=== PATIENT | female | born 1940 | race Caucasian/White ===

== ENCOUNTER → 2019-10-19 13:06 | Outpatient (BNVA) | payer MEDICARE, OTHER, SELFPAY | PROVIDERS: Family Provider Nurse Practitioner Family; PCP Nurse Practitioner Family; Visit Provider Nurse Practitioner Family | DX: R19.7 Diarrhea, unspecified (principal) | CPT/HCPCS: 80053; 85025 ==

== ENCOUNTER → 2019-10-20 13:05 | Outpatient (BNVA) | payer MEDICARE, OTHER, SELFPAY | PROVIDERS: Family Provider Nurse Practitioner Family; PCP Nurse Practitioner Family; Visit Provider Nurse Practitioner Family | DX: R19.7 Diarrhea, unspecified (principal) | CPT/HCPCS: 87493; 87505 ==

== ENCOUNTER → 2019-11-11 13:22 | Outpatient (BNVA) | payer MEDICARE, OTHER, SELFPAY | PROVIDERS: Visit Provider Nurse Practitioner Family | DX: R60.0 Localized edema (principal); I10 Essential (primary) hypertension; K29.80 Duodenitis without bleeding | CPT/HCPCS: 80048; 85025 ==

== ENCOUNTER → 2019-12-08 10:12 | Outpatient (BNVA) | payer MEDICARE, OTHER, SELFPAY | PROVIDERS: Visit Provider Family Medicine | DX: D64.9 Anemia, unspecified (principal) | CPT/HCPCS: 80053; 85025 ==

== ENCOUNTER → 2020-05-25 08:42 | Outpatient (BNVA) | payer MEDICARE, OTHER, SELFPAY | PROVIDERS: Visit Provider Internal Medicine | DX: Z11.59 Encounter for screening for other viral diseases (principal) | CPT/HCPCS: 87635 ==

== ENCOUNTER 2020-05-30 20:25 | Observation (INO) | payer MEDICARE, OTHER, SELFPAY ==
--- NOTE | 2020-05-29 13:04 | P.ANESASSM_ITS ---
Pre-Anesthetic Assessment Pre-Anesthetic Assessment: Height/Weight: Height 1.65 m Weight 72.575 kg Preop Diagnosis: uterine prolapse Proposed Procedure: Operation Date: 05/30/20 10:10 Proposed Procedures p Anterior Repair(Not Applicable) - Presley Medina MD s Posterior Repair(Not Applicable) - Presley Medina MD s Midurethral single incision sling(Not Applicable) - Presley Medina MD s Sacrospinal Ligament Suspension(Not Applicable) - Presley Medina MD Familial anesthetic complications: None Was Beta Yo taken within 24 hours: N/A Social: Social History: No alcohol and No tobacco Exam: Pre-Anes Outpt Exam: alert, oriented x 3, clear to auscultation bilaterally and regular rate & rhythm Airway: Cervical ROM: WNL MP: 3 Dentition: False CV/HEM: CV/HEM: HTN Anesthetic Plan: ASA status: 2 Anesthesia: General Risk of > 500 ml blood loss (7ml/kg in children): No PFSH Anesthesia PFSH: Medical History CKD (chronic kidney disease), stage III Hypertension Diagnosed in her 60s and is controlled with medication managed by her primary care doctor Dr. Mcleod. Mixed hyperlipidemia Currently on medication managed by her primary care provider No pertinent past medical history Denies: diabetes, asthma, hypertension, seizures, DVT/PE PCP: Dr. Mcleod Osteoporosis On Prolia managed by Dr. Mcleod since 2018 Surgical History History of back surgery x 2 for bulging disc 1994-Performed in [facility] 10/2015- Performed in [facility] laparoscopic cholecystectomy [id number]: Laparoscopic procedure, Performed in [place], [place] Hx of bilateral cataract extraction Performed in [place] Hx of hysterectomy 03/19/16- total abdominal hysterectomy, bilateral salpingo-oophorectomy, lysis of adhesions-Performed in [facility] by Dr. Xavier Bartlett. -----Operative reports requested and received (scanned) ---> Intraoperatively a 10 cm mass was noted which appeared to be originating from the left ovary and appeared to be benign. Frozen section was done which confirmed that this was benign. Bilateral ovaries, pelvic mass originating from the left ovary and uterus were removed without difficulty after lysis of adhesions. Vaginal cuff was closed. -Left tube and ovary with pelvic mass pathology showed serous cyst adenofibroma with normal fallopian tube. Right ovary should adenofibroma with focal features of serous cystoadenofibroma. Uterus showed fibroids with focally disordered proliferative endometrium and chronic cervicitis. 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 Mother Diabetes Stroke Heart disease Thyroid condition Sister Hyperlipidemia x 3 Hypertension Father CHF (congestive heart failure) Heart disease Other COPD (chronic obstructive pulmonary disease) Vaginal prolapse Denies family history of Colon cancer Ovarian cancer Breast cancer Uterine cancer Social History (Updated 05/29/20 @ 10:15 by Jesenia Penn RN) Smoking and tobacco status: former smoker Quit status (tobacco): has quit using tobacco Former quit date comment: quit age 45; smoked PPD x 20 yrs Second hand smoke exposure: No Alcohol intake: never Caregiver/support person: Yes Lives independently: Yes Housing: House Marital status: History of recent travel: No Additional social history: Tobacco use: Former smoker-started smoking in her 20s and smoked about 1 pack of cigarettes a day and stopped at the age of 45- denies tobacco product use since then Alcohol use: Denies Drug use: Denies 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 Data Anesthesia Cardiac Studies: No Data to Display
[2020-05-30] VITALS (13 sets, daily range): BP systolic 99–145; BP diastolic 49–80; PULSE 73–106; RESP 14–25; TEMP 36.5–36.8; O2SAT 94–100; BMI 26.6
--- NOTE | 2020-05-30 08:53 | W.PM.OPSUD ---
Surgery/Procedure H&P Update DATE OF PROCEDURE: May 30, 2020 DATE H&P PERFORMED: 05/29/20 H&P UPDATE INFORMATION: I have reviewed H&P completed within last 30 days, I have examined patient prior to procedure and No changes to prior documentation PREOP DIAGNOSIS: Vaginal prolapse PLANNED PROCEDURE: Operation Date: 05/30/20 10:10 Proposed Procedures p Anterior Repair(Not Applicable) - Presley Medina MD s Posterior Repair(Not Applicable) - Presley Medina MD s Midurethral single incision sling(Not Applicable) - Presley Medina MD s Sacrospinal Ligament Suspension(Not Applicable) - Presley Medina MD
[2020-05-30] MEDS: sodium chloride 0.9% 1,000 ML 30 ML IV (09:18)
[2020-05-30] MEDS: vancomycin 1,000 MG in sodium chloride 0.9% 250 ML 250 MG IV (09:26)
[2020-05-30 10:10] LABS: Basophils # 0.1 10^3/uL (0.0-0.1); Basophils % 0.5 %; Eosinophils # 0.3 10^3/uL (0.0-0.8); Hematocrit 38.1 % (37.0-47.0); Hemoglobin 11.4 g/dL (11.5-15.3); Lymphocytes # 1.3 10^3/uL (0.8-4.8); Lymphocytes % 13.9 %; Mean Corpuscular HGB Conc 29.9 g/dL (30.0-36.0); Mean Corpuscular Volume 90.3 fL (81-99); Mean Platelet Volume 10.7 fL (7.4-10.4); Monocytes # 0.7 10^3/uL (0.2-0.9); Monocytes % 7.8 %; Neutrophils # 6.78 10^3/uL (1.8-7.7); Neutrophils % 74.5 %; Nucleated Red Blood Cells % 0 %; Platelet Count 347 10^3/cmm (130-400); Red Blood Count 4.22 10^6/uL (4.1-5.3); Red Cell Distribution Width 15.4 % (12.1-15.1); White Blood Count 9.1 10^3/uL (4.0-10.0)
--- NOTE | 2020-05-30 10:23 | P.ANESUD_ITS ---
Pre-Anesthetic Update Pre-Anesthetic Assessment: Date of Surgery/Procedure: 05/30/20 Preop Marleen gnosis: Vaginal prolapse Proposed Procedure: Operation Date: 05/30/20 10:10 Proposed Procedures p Anterior Repair(Not Applicable) - Presley Medina MD s Posterior Repair(Not Applicable) - Presley Medina MD s Midurethral single incision sling(Not Applicable) - Presley Medina MD s Sacrospinal Ligament Suspension(Not Applicable) - Presley Medina MD Any changes to Pre-Anesthetic Assessment?: No Last Intake: Intake Last Liquid Date 05/29/20 Last Liquid Time 22:00 Last Solid Date 05/29/20 Last Solid Time 15:30 Labs Last 48hrs: Laboratory Results - last 48 hr 05/30/20 09:15 WBC 9.1 RBC 4.22 Hgb 11.4 L Hct 38.1 MCV 90.3 MCH 27.0 L MCHC 29.9 L RDW 15.4 H Plt Count 347 MPV 10.7 H Neut % (Auto) 74.5 Lymph % (Auto) 13.9 Lipscomb % (Auto) 7.8 Eos % (Auto) 3.0 Baso % (Auto) 0.5 Neut # (Auto) 6.78 Lymph # (Auto) 1.3 Lipscomb # (Auto) 0.7 Eos # (Auto) 0.3 Baso # (Auto) 0.1 Nucleated RBC % (a uto) 0 Nucleated RBCs # 0.0 Vitals: Temperature 97.7 F 05/30/20 08:50 Temperature Source Temporal Artery S can 05/30/20 08:50 Pulse Rate 77 05/30/20 08:50 Pulse Rhythm 05/30/20 08:50 Respiratory Rate 18 05/30/20 08:50 Blood Pressure 136/56 05/30/20 08:50 Blood Pressure Kim n 82 05/30/20 08:50 Pulse Oximetry 97 05/30/20 08:50 Oxygen Delivery Me thod 05/30/20 08:50 Exam: Pre-Anes Outpt Exam: alert, oriented x 3, clear to auscultation bilaterally and regular rate & rhythm Other Pertinent Information: Other Pertinent Information: HTN, CKD III Cardiac Studies: No Data to Display
[2020-05-30 10:26] LABS: Alanine Aminotransferase 45 U/L (0-33); Albumin Level 3.7 g/dL (3.5-5.2); Alkaline Phosphatase 554 IU/L (35-105); Anion Gap 17.6 (5-19); Aspartate Amino Transferase 32 U/L (0-32); Blood Urea Nitrogen 19 mg/dL (8-23); Calcium 8.3 mg/dL (8.5-10.5); Carbon Dioxide 14 mmol/L (22-29); Chloride 110 mmol/L (98-107); Creatinine Clr Calc Pharmacy 32.5246; Globulin 2.7 g/dL (1.3-4.6); Glucose 96 mg/dL (65-115); Osmolality Calculated 282 mOsm/kg (285-295); Potassium 3.6 mmol/L (3.5-5.1); Sodium 138 mmol/L (136-145); Total Bilirubin 0.3 mg/dL (0.15-1.2); Total Protein 6.4 g/dL (6.6-8.7)
[2020-05-30 10:54] LABS: Add Urine Microscopic? YES; Bilirubin Urine Neg (NEGATIVE); Blood Urine 2+ (Negative); Glucose Urine UA Norm (Normal); Ketones Urine 1+ (Negative); Leukocyte Esterase Urine 1+ (Negative); Nitrate Urine Negative (Negative); Protein Urine Neg (Negative); Urine Appearance Clear (CLEAR); Urine Color Yellow (Yellow); Urobilinogen Urine Norm (Negative)
[2020-05-30 11:02] LABS: Add Urine Culture? No; Bacteria Urine 1+; Hyaline Casts Urine 0-4; Mucus Urine 1+; Squamous Epithelial Cell Urine 15-25 (0-5); Transitional Epi Cells Urine 0-4 /hpf
--- NOTE | 2020-05-30 20:09 | P.OP_ITS ---
Operative Report Date of procedure: May 30, 2020 Pre-op Diagnosis: Vaginal prolapse Procedure Done: Anterior posterior colporrhaphy with mid urethral sling and sacrospinous ligament fixation. Surgeon: Presley Medina M.D. Anesthesia: General Estimated blood loss (mL): 50 IV fluids (mL): 1,200 Urine output (mL): 100 Condition: stable Disposition: PACU Procedure: After obtaining informed consent, the patient was taken to the operating room and placed in the supine position, given general anesthesia, and prepped and draped in sterile fashion. The abdomen, vulva and vagina were prepped and draped in a sterile manner. A time out procedure was performed. A vertical midline incision was made beneath the midurethra, nearly 1.5 cm length. Careful submucosal dissection was performed bilaterally up to the interior portion of the inferior pubic ramus. The insertion of adductor longus tendon on the patient?s pubic ramus was identified as reference land hortencia. Palpated the notch along the internal edge of ischiopubic ramus where the adductor longus tendon and the inferior pubic ramus meet. The needle of the SIS inserted aiming at the location of this notch. One of the integrated self- fixating tips place onto the needle by sliding it over the end of the needle. The needle/sling assembly was inserted toward the location of identified reference notch making sure that the flat of the handle is perpendicular to the desired path. The needle was tracked along the posterior surface of the ischiopubic ramus until the midline hortencia on the mesh is approximately at the midline position under the urethra. The needle was removed and the same was repeated on the contralateral side until the appropriate sling tension under the urethra was achieved ensuring that the mesh lays flat. The needle was removed and vaginal incision was closed in a running interlocking fashion with 2-0 Vicryl. Then vaginal mucosa was then injected in the midline with normal saline. The vaginal mucosa was scored in the midline with the Bovie approximately 1 cm medial to the urethral meatus to 1 cm distal to the vaginal cuff. This vaginal mucosa was then undermined and then incised in the midline with the Metzenbaum scissors. The lateral aspects of the vaginal mucosa were then grasped with the Allis clamps and the vaginal mucosa was then dissected off the underlying fascia with the Metzenbaum scissors. Again, there was noted to be quite a bit of oozing at the incision, which was controlled with cautery. After adequate dissection was performed, bilaterally. The Coloplast allograft is modified at time of application to fit spacea,3 x 3 cm piece . The allograft was placed in front of cystocele ready to be implanted with the Basement Membrane facing the vagina mucosa. Suture is placed at distal end of graft and placed towards vaginal cuff. Final suture is placed on proximal portion of the graft to complete the placement overlying the bladder. Then Interrupted vertical mattress sutures of 0 Vicryl were used to elevate the cystocele superiorly. The excessive vaginal mucosa was then trimmed with the Metzenbaum scissors and the vaginal mucosa was then reapproximated in the running interlocking fashion with 2-0 Vicryl. The posterior vaginal mucosa is opened in the routine fashion as described previously in Posterior Repair. A finger is inserted through the incision in the posterior vaginal mucosa, dissecting out the rectovaginal space (RVS). The right rectal pillar (RRP) is identified. The rectal pillar can be bluntly perforated either with the finger or with the tip of a long Maral clamp. A malleable retractor is used for exposing the rectovaginal space in order to enter the pararectal space with retraction of the cardinal ligament, vagina, and rectum. Displacing the rectum to the left and the cardinal ligament and ureter anteriorly. A sponge dissector is used to bluntly dissect the sacrospinous ligament removing areolar tissue. The ischial spine was palpated directly, and a area approximately 2 cm medial to the spine was selected for insertion of the Anchorsure transvaginal sacrospinous fixation system. One end of the suture of Anchoresure system inserted through the sacrospinous ligament is placed through the muscular layer of the vagina. In a similar manner, the second suture is placed. The opposite end of the suture in the sacrospinous ligament is left free and held on a small hemostat. Then traction on this suture will draw the vaginal vault directly to the ligament, where a square knot affixes it to the sacrospinous ligament. After the akbar stich is tied the second safety stich is tied. Then the colporrhaphy/vaginal repair is carried out in routine fashion. Then the Gonzalez catheter was removed and cystoscope was inserted. The bladder was filled with sterile water. Complete evaluation of the bladder mucosa was performed noting no lacerations, dimpling, tears, bleeding of the mucosa or muscular layers. Both ureteral orifices were identified. Prompt excretion of urine from both ureteral orifices was noted. Cystoscope was withdrawn. The Gonzalez catheter was replaced. Excellent hemostasis was obtained. A vaginal pack is placed overnight as postoperative support for the vaginal tissues after graft placement and closure of vaginal incisions. Sponge, lap, needle, and instrument counts were correct times three. The patient was taken to the recovery room, awake and in stable condition.
--- NOTE | 2020-05-30 20:28 | ANE.PACU2 ---
Inpatient post-anesthesia follow up: Airway intact: Yes Vital signs: Temperature 97.7 F Pulse Rate 77 Respiratory Rate 18 Blood Pressure 136/56 Pulse Oximetry 97 Oxygen Delivery Me thod Room Air Oxygen Flow Rate Fraction of Inspir ed Oxygen Hydration adequate: Yes Nausea and vomiting: No Mental status: Baseline
--- NOTE | 2020-05-30 23:12 | PC.NURSE ---
2033 Dr Medina gave verbal orders that pt can eat as tolerated, Gonzalez out in AM, PVR less than 150 discontinue Gonzalez, if greater than 150 repeat in 2 hours, if greater than 150 on second trial replace Gonzalez and discharge with Gonzalez. Remove vaginal packing in AM
[2020-05-31] VITALS (9 sets, daily range): BP systolic 92–132; BP diastolic 53–71; PULSE 66–79; RESP 14–17; TEMP 36.4–36.8; O2SAT 93–99
[2020-05-31] MEDS: dextrose 5%-lactated ringers 1,000 ML 125 ML IV (01:32)
[2020-05-31] MEDS: multivitamin therapeutic Tablet 1 TAB PO (06:26)
[2020-05-31] MEDS: FUROsemide 20 mg Tablet PO (06:26)
[2020-05-31 06:28] LABS: Hematocrit 30.3 % (37.0-47.0); Hemoglobin 9.1 g/dL (11.5-15.3); Mean Corpuscular Hemoglobin 27.1 pg (28.0-34.0); Mean Corpuscular Volume 90.2 fL (81-99); Platelet Count 287 10^3/cmm (130-400); Red Blood Count 3.36 10^6/uL (4.1-5.3); Red Cell Distribution Width 15.7 % (12.1-15.1); White Blood Count 9.5 10^3/uL (4.0-10.0)
--- NOTE | 2020-05-31 07:17 | ANE.PACU2 ---
Inpatient post-anesthesia follow up: Airway intact: Yes Vital signs: Temperature 97.7 F Pulse Rate 77 Respiratory Rate 16 Blood Pressure 99/59 Pulse Oximetry 96 Oxygen Delivery Me thod Room Air Oxygen Flow Rate 2 Fraction of Inspir ed Oxygen Hydration adequate: Yes Nausea and vomiting: No Pain level: 1 Mental status: Baseline
[2020-05-31] MEDS: amlodipine 10 mg Tablet PO (09:43)
[2020-05-31] MEDS: losartan 50 mg Tablet PO (09:43)
[2020-05-31] MEDS: cholecalciferol (vitamin D3) 5,000 unit Tablet 5000 UNIT PO (09:44)
[2020-05-31] MEDS: zinc gluconate 50 mg Tablet PO (09:44)
--- NOTE | 2020-05-31 14:34 | PC.NURSE ---
Diarrhea Episode Patient hit emergency lit in bathroom. RNs rushed to patient's room and found her in bathroom and diarrhea found on bed, trail on floor to bathroom, and all over patient. RNs assisted patient in cleaning herself up, changed linens, and had environmental services mop floor and clean bathroom. Patient stated she gets diarrhea when she eats very much. Stated she didn't want to drink water for a little bit, felt her diarrhea was straight water.
--- NOTE | 2020-05-31 17:43 | P.DS_ITS ---
Discharge Providers HYDRAULIC PRESS IN OPERATOR Date of Admission: 05/30/20 20:25 Date of Discharge: 05/31/20 Attending Provider at Admission: Presley Medina MD Attending Provider at Discharge: Presley Medina MD Primary Care Provider: Sharifa Mcleod MD Diagnoses at Discharge Discharge Diagnosis (1) Vaginal prolapse: Status: Acute Problem details: 03/14/2020--grade 3 cystocele, grade 2-3 vault prolapse, grade 1 rectocele. 04/17/2020--failed pessary fitting Reason for Visit Reason for Visit: Cystocele grade 3 Hospital Course Hospital Course: 79-year-old female, With cystocele stage III rectocele stage I Admitted for an anterior posterior colporrhaphy with mid urethral sling, and sacrospinous fixation. An anterior colporrhaphy augmented with allograft, mid- urethral sling And posterior colporrhaphy with sacrospinous fixation performed without complications. Overnight observation uneventful. Patient discharged home with Gonzalez catheter to reassess PVR on Thursday. Physical Exam Narrative: EXAM NARRATIVE: GA: Alert and oriented ?3. HEENT: WNL. Heart: Regular rate and rhythm. Lungs: Clear to auscultation bilaterally. Abdomen: Bowel sounds present, nontender DIVER ASSISTANT:minimal bleeding. Extremities: No edema, no cyanosis, no calves pain. Urinary Catheter Management^: Gonzalez: Cath Placed During This Visit: yes, but has since been removed by the nurse Reason for Continuing Indwelling Catheter: Decision to DC Catheter Urinary Catheter Date of Insertion: 05/31/20 Urinary Catheter Time of Insertion: 15:15 Date Urinary Catheter Removed: 05/31/20 Time Urinary Catheter Discontinued: 06:30 Discharge Data Data Completed and Pending: Labs from last 24 hours 05/31/20 06:15 WBC 9.5 RBC 3.36 L Hgb 9.1 L Hct 30.3 L MCV 90.2 MCH 27.1 L MCHC 30.0 RDW 15.7 H Plt Count 287 MPV 11.0 H Vitals: Last Vital Signs Temp 97.6 F 05/31/20 09:45 Pulse 66 05/31/20 16:19 Resp 17 05/31/20 16:19 BP 132/71 05/31/20 16:19 Pulse Ox 99 05/31/20 16:19 Discharge Plan Discharge Patient Disposition: Home Condition: Stable Prescriptions: [place] Line 5-325 mg tablet 1 tab PO Q4H PRN (Reason: pain) Qty: 20 RF: 0 ferrous sulfate 325 mg (65 mg iron) tablet 325 mg PO BID Qty: 60 RF: 0 loperamide [Anti-Diarrheal (loperamide)] 2 mg tablet 1 mg PO Q6H PRN (Reason: loose stool) Qty: 10 RF: 0 nitrofurantoin macrocrystal 100 mg capsule 100 mg PO Q24H 10 Days Qty: 10 RF: 0 Continued Prolia 60 mg/mL syringe 60 mg SUBCUT .every 6 months RF: 0 multivitamin [Daily Multi-Vitamin] Tablet 1 tab PO QAM RF: 0 acetaminophen [Tylenol] 325 mg tablet 650 mg PO BID PRN (Reason: Back Pain) RF: 0 cholecalciferol (vitamin D3) 25 mcg (1,000 unit) tablet 5,000 unit PO QDAY RF: 0 olmesartan [Benicar] 40 mg tablet 20 mg PO DAILY RF: 0 zinc acetate 50 mg (zinc) capsule 50 mg PO DAILY RF: 0 furosemide [Lasix] 20 mg tablet 20 mg PO QAM Qty: 30 RF: 0 amlodipine 10 mg tablet See Rx Instructions .ROUTE .COMPLEX Qty: 90 RF: 3 Discharge Orders: Discharge Order (Routine); Ordered 05/31/20 Ordered By: Presley Medina Referrals: Presley Medina MD [Physician] - 06/04/20 (Return to the clinic Thursday for Gonzalez Catheter removal) Discharge Diet: As Directed Discharge Activity: Increase activity as tolerated Patient Instructions: Anterior Vaginal Repair (DC), Posterior Vaginal Repair (DC) Activity Restrictions/Additional Instructions: 1. Please call [facility] on next working day to make your post-operative appointment in 2 weeks. 2. Please stay home until you come back to the clinic on first post-operative check up. 3. Please follow instructions on your medications CAREFULLY. 4. If you have abdominal incision, do not cover it unless dressing is necessary because of drainage. OK to shower, but avoid bath. Leave steri-strips until they fall off. If they are still on one week after surgery, you may remove them. 5. If you had vaginal surgery, your doctor may instuct you to take SITZ bath. 6. Yellow, blood tinged odorous vaginal discharge is usually normal after hysterectomy or vaginal surgeries. 7. No sexual intercourse, tampons, or douches until you are completely released from the post-operative care. 8. Avoid constipation by eating right and maybe using some Metamucil or Milk of Magnesia. 9. All presciption refills are given during the working hours. Please do no wait till it runs out. Call the clinic at [phone] before your medication runs out. The clinic will get in touch with your doctor to prescribe medications if necessary. 10. Please remain within 40 mile radius from our hospital because emergencies do happen now and then during the post-operative period. 11. If you have stairs at home, take one step at a time slowly and minimize the number of trips. It helps to stay in one floor for the next few days. No lifting except what you can lift by one hand until you are released from the post-operative care. 12. Driving is discouraged until you are well healed. It may be 3-4 weeks before you feel strong enough to drive. You should be able to turn and look throught the rear window without pain and you should be able to push the brake pedal very hard without pain before you drive. No fast rules, but SAFETY should be your primary concern. DO NOT drive if you are on sedating medications such as narcotics. 13. Call the clinic (during working hours) to make urgent appointment or go to the Emergency room, if any of the following occurs: i. Vaginal bleeding becomes heavy, more than a period. ii. Incision becomes red and sore, or drains pus. iii. Your temperature is over 100.4 or you have chill. iv. IV site becomes red and swollen (a little ``knot?? is usually OK) v. Persistent nausea and vomiting vi. Persistent constipation or diarrhea vii. Rash or allergic reaction to medications. Pelvic rest for 6 weeks (no sex, no tampons, no vaginal douches). Return to the emergency room if any fever, increased bleeding or pain. Discharge Attestations HYDRAULIC PRESS IN OPERATOR Time Spent in Discharge Care*: greater than 30 min Specific Discharge Activities: Specific discharge activities: educating patient and educating and/or supporting family/caregiver Coding Level of Care Code Acute Epic Ambulatory Analyst for Georgia Velásquez Diagnoses Vaginal prolapse N81.10
== END 2020-05-31 19:19 | disposition home or self-care (01) ==
LOC: OBGYN 20:41
PROVIDERS: Admitting Provider Obstetrics & Gynecology; PCP Family Medicine; Visit Provider Obstetrics & Gynecology
PROC: 0JQC0ZZ Repair Pelvic Region Subcutaneous Tissue and Fascia, Open Approach (ICD-10-PCS; CPT 57240; principal; 2020-05-30 10:10)
PROC: (CPT 57250; 2020-05-30 10:10)
PROC: (CPT 57288; 2020-05-30 10:10)
PROC: (CPT 57283; 2020-05-30 10:10)
PROC: 0TJB8ZZ Inspection of Bladder, Via Natural or Artificial Opening Endoscopic (ICD-10-PCS; CPT 52000; 2020-05-30 10:10)
DX: N81.10 Cystocele, unspecified (principal); I12.9 Hypertensive chronic kidney disease with stage 1 through stage 4 chronic kidney disease, or unspecified chronic kidney disease; N18.3 Chronic kidney disease, stage 3 (moderate); E78.2 Mixed hyperlipidemia; Z87.891 Personal history of nicotine dependence
CPT/HCPCS: 57240; 57282; 57288; 12345; 36415; 51702; 80053; 81001; 85025; 85027; 86850; 86900; 96361; 96365; C1713; C1762; G0378; J1100; J1885; J2405; J2704; J2710; J3010; J3370; J3490; J7030; J7050

== ENCOUNTER → 2020-11-19 08:51 | Outpatient (BNVA) | payer MEDICARE, OTHER, SELFPAY | PROVIDERS: PCP Family Medicine; Visit Provider Nurse Practitioner Family | DX: R19.7 Diarrhea, unspecified (principal); E55.9 Vitamin D deficiency, unspecified; I10 Essential (primary) hypertension; R60.9 Edema, unspecified | CPT/HCPCS: 80053; 80061; 82306; 82607; 83735; 84439; 84443; 84481; 85025; 86705; 86706; 86709; 86803; 87340; 87806 ==

== ENCOUNTER → 2020-12-18 13:34 | Outpatient (BNVA) | payer MEDICARE, OTHER, SELFPAY | PROVIDERS: PCP Family Medicine; Visit Provider Family Medicine | DX: R06.00 Dyspnea, unspecified (principal); M85.88 Other specified disorders of bone density and structure, other site; M48.54XA Collapsed vertebra, not elsewhere classified, thoracic region, initial encounter for fracture | CPT/HCPCS: 71046 ==

== ENCOUNTER 2020-12-27 13:01 | Outpatient (CLI) | payer MEDICARE, OTHER, SELFPAY ==
[2020-12-27] MEDS: iohexol 300 mg/mL 50 mL Btl PO (13:21)
[2020-12-27] MEDS: iodixanol 320 mg/mL 100mL Btl IV (14:47)
--- NOTE | 2020-12-27 15:00 | CT_ITS ---
WS: [id number] CT ABDOMEN AND PELVIS WITH CONTRAST HISTORY: R63.4 - Abnormal weight loss TECHNIQUE: Imaging performed of the abdomen and pelvis with IV contrast. Single phase imaging of the abdomen. Coronal and sagittal reformats are submitted. All CT scans at [facility] use at least one of these dose optimization techniques: automated exposure control; mA and/or kV adjustment per patient size (includes targeted exams where dose is matched to clinical indication); or iterativ e reconstruction. IV CONTRAST: Visipaque 320; 95 mL IV. Oral contrast: Yes. DLP: 804.65 mGycm COMPARISON: 09/19/2016 Lower thorax: Opacifications at the lung bases. Linear opacification at the RIGHT lung base measures 5.4 x 1.2 cm. There is an additional smaller opacification in the RIGHT middle lobe and in the LEFT l ower lobe. Heart is normal size. No hiatal hernia. Liver/biliary system: There are a few scattered hypodensities within the liver which are too small to characterize. Gallbladder: Prior cholecystectomy. Pancreas: Moderate atrophy of the pancreas. Pancreatic duct measures 2 mm. Spleen: Low-attenuation mass with septations and peripheral enhancement involving the superior spleen . This mass measures 3.2 x 1.8 cm and is abutting the undersurface of the diaphragm. The splenic mass was not present in 2016. Adrenal glands: Normal. Right kidney: Mild diffuse atrophy. No obstruction. Left kidney: Mild diffuse atrophy with no obstruction. Aorta: Mild atherosclerosis with no aneurysm. Lymphadenopathy: None. Free fluid: There is a very small amount of free fluid in the pelvis. There is a small amount of nan a within the mesentery. More moderate anasarca. GI tract: Fluid distended colon. There is wall thickening of the distal colon. Circumferential wall t hickening involves the distal colon/rectum but also the perineum and vaginal region. Prior hysterecto my. The soft tissue thickening and edema was not present in 2016. Mild infiltration of the adjacent s oft tissues. Abdominal wall: Unremarkable abdominal wall. No hernia. Pelvis: Prior hysterectomy. Circumferential soft tissue thickening involving the distal colon, vagina and perineal soft tissue structures. On the sagittal projection there is significant soft tissue thi ckening and nodularity along the region of the vagina, inseparable from the posterior urinary bladder . 1. Bones: Advanced degenerative changes in the lumbar spine. Complete loss of disc space height at L 2-3, L4-5 and L5-S1. Concavity involving the superior endplate of L1. CT/CT abdomen pelvis w con* [id number] IMPRESSION: 1. There is marked soft tissue thickening with nodularity involving the distal colon/rectum and anus with extension into the perineum and vagina. Large amoun t of edema soft tissue thickening which is new since 2016. This may all be infe ctious or postinflammatory or neoplastic. 2. Diffuse soft tissue anasarca. 3. Bilateral lower lung field opacifications. New since and metastatic l esions are not excluded. 4. 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 Mass measures 3.2 x 1.8 cm. New since 2015. 5. Diffuse increased fluid within the colon is probably related to partial obs truction by the increased soft tissue near the perineum and rectum.
== END 2020-12-27 13:02 | disposition home or self-care (01) ==
LOC: RADWPI 13:12
PROVIDERS: PCP Family Medicine; Visit Provider Family Medicine
DX: R63.4 Abnormal weight loss (principal); R19.7 Diarrhea, unspecified; R60.1 Generalized edema; D73.9 Disease of spleen, unspecified
CPT/HCPCS: 74177; 83520; 89125; Q9967

== ENCOUNTER 2021-01-14 10:26 | Outpatient (CLI) | payer MEDICARE, OTHER, SELFPAY ==
--- NOTE | 2021-01-14 10:34 | CT_ITS ---
WS: [id number] Exam: CT chest w con* [id number] Date/Time of Exam: 01/14/2021 10:52 AM Reason For Exam: R91.8 - Other nonspecific abnormal finding of lung field DLP: 419.[address] scans at [facility] use at least one of these dose optimization techniques: automat ed exposure control; mA and/or kV adjustment per patient size (includes targeted exams where dose is matched to clinical indication); or iterative reconstruction. There is a 4.3 cm cavitary mass in the upper lobe of the right lung. There is also a 1 cm solid nonca lcified nodule in the right middle lobe as well as 8.8 cm soft tissue nodule in the right lower lobe. A pleural-based 5.5 x 2.4 cm mass also seen in the posterior basal segment of the right lower lobe. A 0.93 cm soft tissue nodule seen in the left lower lobe. No mediastinal lymphadenopathy noted. The a irway is patent. The thoracic aorta is normal in caliber. No pleural or pericardial effusion is noted . The lungs are hyperinflated most likely indicating obstructive lung disease. Neurostimulator electr odes noted in the thoracic spinal canal. No destructive bone lesions are seen. Old low-grade compress ion fracture of T8 noted which is nondisplaced. Mild insufficiency compressions also noted involving the upper plate of T10 in the upper plate of L1. Coronary artery calcifications. CT sections of the u pper abdomen show several low-attenuation lesions in the superior aspect of the spleen. Probable subc entimeter cyst in the right lobe of the liver. There may be mild anasarca. CT/CT chest w con* [id number] IMPRESSION: 1. 4.3 cm cavitary mass in the upper lobe of the right lung. This could represe nt cavitating malignancy, tuberculosis or other infectious etiology. There are additional solid noncalcified nodules and masses in the right lung as detailed above. 2. 0.93 cm solid nodule in the left lower lobe. 3. Probable chronic obstructive pulmonary disease. No lymphadenopathy in the ch est. Several low-attenuation lesions identified in the superior aspect of the s pleen.
[2021-01-14 11:23] LABS: Blood Urea Nitrogen 25 mg/dL (8-23)
[2021-01-14] MEDS: iodixanol 320 mg/mL 100mL Btl IV (11:31)
== END 2021-01-14 10:27 | disposition home or self-care (01) ==
PROVIDERS: PCP Family Medicine; Visit Provider Family Medicine
DX: R91.8 Other nonspecific abnormal finding of lung field (principal)
CPT/HCPCS: 71260; 82565; 84520; Q9967

== ENCOUNTER 2021-01-23 11:48 | Outpatient (CLI) | payer MEDICARE, OTHER, SELFPAY ==
[2021-01-25 13:58] LABS: Quantiferon Mitogen 3.85 IU/mL; Quantiferon Nil 0.02 IU/mL; Quantiferon TB Gold NEGATIVE (NEGATIVE)
[2021-01-27 18:46] LABS: Fungitell 1-3-B Glucan Assay <31; Interpretation NEGATIVE
== END 2021-01-23 11:49 | disposition home or self-care (01) ==
LOC: LAB 11:59
PROVIDERS: PCP Family Medicine; Visit Provider Internal Medicine Critical Care Medicine
DX: J98.4 Other disorders of lung (principal)
CPT/HCPCS: 36415; 86480; 86698; 87305; 87449

== ENCOUNTER 2021-02-05 10:07 | Day surgery (SDC) | payer MEDICARE, OTHER, SELFPAY ==
[2021-02-05] VITALS (7 sets, daily range): BP systolic 119–136; BP diastolic 55–79; PULSE 65–80; RESP 16–20; TEMP 36.1–36.9; O2SAT 92–100
--- NOTE | 2021-02-05 | CT_ITS ---
Guided Bronchoscopy Planning CT images; total exam DLP: 540.80 mGy-cm MTDD
[2021-02-05] MEDS: sodium chloride 0.9% 1,000 ML 30 ML IV (10:30)
--- NOTE | 2021-02-05 10:42 | P.ANESASSM_ITS ---
Pre-Anesthetic Assessment Pre-Anesthetic Assessment: Height/Weight: Height 1.65 m Weight 49.895 kg Preop Diagnosis: Suspected lung cancer Proposed Procedure: Operation Date: 02/05/21 12:00 Proposed Procedures radha Cavanaugh [id number] R91.1(Not Applicable) - Allie King MD s Ebus(Not Applicable) - Allie King MD Was Beta Yo taken within 24 hours: N/A Was Clonidine taken within 24 hours: N/A Social: Social History: Tobacco (Quit many years ago) and No alcohol Exam: Pre-Anes Outpt Exam: alert, oriented x 3 and regular rate & rhythm Airway: Submandibular: WNL Cervical ROM: WNL MP: 2 Dentition: False CV/HEM: CV/HEM: HTN Comments: Water retention, hypokalemia Metabolic: Metabolic: Thyroid Comments: Weight loss Musc/skel: Musc/skel: Weakness Anesthetic Plan: ASA status: 3 Anesthesia: General Risk of > 500 ml blood loss (7ml/kg in children): No PFSH Anesthesia PFSH: Medical History CKD (chronic kidney disease), stage III Hypertension Diagnosed in her 60s and is controlled with medication managed by her primary care doctor Dr. Mcleod. Mixed hyperlipidemia Currently on medication managed by her primary care provider No pertinent past medical history Denies: diabetes, asthma, hypertension, seizures, DVT/PE PCP: Dr. Mcleod Osteoporosis On Prolia managed by Dr. Mcleod since 2018 Surgical History History of back surgery x 2 for bulging disc 1994-Performed in [facility] 10/2015- Performed in [facility] Hx laparoscopic cholecystectomy [id number]: Laparoscopic procedure, Performed in [place], [place] Hx of bilateral cataract extraction Performed in [place] Hx of hysterectomy 03/19/16- total abdominal hysterectomy, bilateral salpingo-oophorectomy, lysis of adhesions-Performed in [facility] by Dr. Xavier Bartlett. -----Operative reports requested and received (scanned) ---> Intraoperatively a 10 cm mass was noted which appeared to be originating from the left ovary and appeared to be benign. Frozen section was done which confirmed that this was benign. Bilateral ovaries, pelvic mass originating from the left ovary and uterus were removed without difficulty after lysis of adhesions. Vaginal cuff was closed. -Left tube and ovary with pelvic mass pathology showed serous cyst adenofibroma with normal fallopian tube. Right ovary should adenofibroma with focal features of serous cystoadenofibroma. Uterus showed fibroids with focally disordered proliferative endometrium and chronic cervicitis. 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 Mother Diabetes Stroke Heart disease Thyroid condition Sister Hyperlipidemia x 3 Hypertension Father CHF (congestive heart failure) Heart disease Other COPD (chronic obstructive pulmonary disease) Vaginal prolapse Denies family history of Colon cancer Ovarian cancer Breast cancer Uterine cancer Social History Smoking and tobacco status: former smoker Quit status (tobacco): has quit using tobacco Former quit date comment: quit age 45; smoked PPD x 20 yrs Second hand smoke exposure: No Alcohol intake: never Caregiver/support person: Yes Lives independently: Yes Housing: House Marital status: History of recent travel: No Additional social history: Tobacco use: Former smoker-started smoking in her 20s and smoked about 1 pack of cigarettes a day and stopped at the age of 45- denies tobacco product use since then Alcohol use: Denies Drug use: Denies 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 Data Anesthesia Cardiac Studies: No Data to Display
--- NOTE | 2021-02-05 11:18 | ECG_ITS ---
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 Measurements Intervals [place] Rate: 68 P: 72 [place]: 153 QRS: -40 QRSD: 96 T: 36 QT: 427 QTc: 456 Interpretive Statements SINUS RHYTHM WITH OCCASIONAL SUPRAVENTRICULAR PREMATURE COMPLEXES MARKED LEFT AXIS DEVIATION [QRS AXIS < -30] POSSIBLE ANTERIOR MYOCARDIAL INFARCTION [30 ms Q WAVE IN V3/V4, OR R < 0.2 mV IN V4], PROBABLY OLD No previous ECG available for comparison Electronically Signed On 02-06-2021 6:52:44 CDT by Josie Fields M.D. [email or web address] Data [email or web address] regional medical [id number]
--- NOTE | 2021-02-05 12:00 | W.PM.OPSUD ---
Surgery/Procedure H&P Update DATE OF PROCEDURE: February 05, 2021 DATE H&P PERFORMED: 01/23/21 H&P UPDATE INFORMATION: I have reviewed H&P completed within last 30 days, I have examined patient prior to procedure and No changes to prior documentation PREOP DIAGNOSIS: Suspected lung cancer PRIMARY INDICATION FOR PROCEDURE: Suspected lung cancer PLANNED PROCEDURE: Bronchoscopy with inspection of the airway, possible endobronchi bronchoalveolar lavage, navigational bronchoscopy guided transbronchial biopsy of the right upper lobe lung mass, fine-needle aspiration, endobronchial sound guided transbronchial needle aspiration of lymph nodes and control of bleeding. Date: 02/05/21 12:00 Proposed Procedures p Veran [id number] R91.1(Not Applicable) - Allie King MD s Ebus(Not Applicable) - Allie King MD
[2021-02-05 12:11] LABS: Blood Urea Nitrogen 39 mg/dL (8-23); Calcium 6.9 mg/dL (8.5-10.5); Carbon Dioxide 17 mmol/L (22-29); Chloride 108 mmol/L (98-107); Glucose 74 mg/dL (65-115); Osmolality Calculated 300 mOsm/kg (285-295); Sodium 141 mmol/L (136-145)
[2021-02-05 12:14] LABS: Anion Gap 19.2 (5-19); Potassium 3.2 mmol/L (3.5-5.1)
[2021-02-05] MEDS: lidocaine 1% INJ 20 mL XX (12:50)
--- NOTE | 2021-02-05 13:39 | PM.OP ---
Operative Report Date of procedure: February 05, 2021 Pre-op Diagnosis: Suspected lung cancer Post-op diagnosis: same Brief History: This is an 80-year-old lady with right upper lobe cavitary lung lesion and evidence of metastatic disease on PET scan coming in for bronchoscopic evaluation. Procedure: Name of the procedure: Bronchoscopy with inspection of the airway, navigational bronchoscopy guided transbronchial biopsies, endobronchial ultrasound-guided transbronchial needle aspiration of lymph nodes and control of bleeding. Indication: Suspected lung cancer Anesthesia: General anesthesia. Local anesthesia: The vocal cords, trachea, fifi and the right and left mainstem bronchi were anesthetized with 1% lidocaine, 3 mL. Description of the procedure: The procedure was explained to the patient and the consent was obtained. The patient was brought to the OR. The patient underwent laryngeal mask airway placement for general anesthesia. Following induction of general anesthesia, the bronchoscope was advanced through the LMA. The vocal cords anesthetized with 1% lidocaine, 3 mL lidocaine was used. The upper and lower trachea appeared to be normal. The fifi was sharp. The fifi, the right and left mainstem bronchi are anesthetized with 1% lidocaine. In a systematic manner bilateral bronchial tree was then examined. The bronchoscope was advanced into the left mainstem bronchus. The left upper lobe, lingula and left lower lobe bronchi were examined up to the third subsegmental level and no abnormalities were identified. The bronchoscope was then introduced into the right mainstem bronchus. The right upper lobe, right middle lobe and right lower lobe bronchi were examined up to the third subsegmental level and no abnormalities were identified. There was mild mucus throughout the airways. Using navigational bronchoscopy, transbronchial biopsies were obtained from the right upper lobe lung mass. The endobronchial ultrasound was introduced through the ET tube. No significant mediastinal or hilar lymphadenopathy was identified. As the PET scan was positive for right hilar lymph node, transbronchial needle aspiration was performed from 11 R lymph node station. Samples: 1. The transbronchial biopsies are sent for histopathology. 2. The transbronchial needle aspiration of the aforementioned lymph node groups were sent for histopathology. Complications: There was no immediate complications. Chest x-ray: Pending
--- NOTE | 2021-02-05 14:50 | ANE.PACU2 ---
Inpatient post-anesthesia follow up: Airway intact: Yes Vital signs: Temperature 97 F Pulse Rate 70 Respiratory Rate 18 Blood Pressure 119/73 Pulse Oximetry 92 Oxygen Delivery Me thod Room Air Oxygen Flow Rate 6 Fraction of Inspir ed Oxygen Hydration adequate: Yes Nausea and vomiting: No Pain level: 1 Mental status: Baseline
== END 2021-02-05 15:20 | disposition home or self-care (01) ==
PROVIDERS: Anesthesiology; PCP Family Medicine; Visit Provider Internal Medicine Critical Care Medicine
PROC: 0BJ08ZZ Inspection of Tracheobronchial Tree, Via Natural or Artificial Opening Endoscopic (ICD-10-PCS; CPT 31622; principal; 2021-02-05 11:50)
PROC: BB4BZZZ Ultrasonography of Pleura (ICD-10-PCS; 2021-02-05 11:50)
DX: C34.90 Malignant neoplasm of unspecified part of unspecified bronchus or lung (principal); Z87.891 Personal history of nicotine dependence; E78.2 Mixed hyperlipidemia; M81.0 Age-related osteoporosis without current pathological fracture; I12.9 Hypertensive chronic kidney disease with stage 1 through stage 4 chronic kidney disease, or unspecified chronic kidney disease; N18.30 Chronic kidney disease, stage 3 unspecified; Z82.49 Family history of ischemic heart disease and other diseases of the circulatory system; Z83.3 Family history of diabetes mellitus; Z82.3 Family history of stroke
CPT/HCPCS: 31627; 31652; 36415; 77011; 80048; 80500; 88305; 93005; 96360; 96361; J2405; J2704; J3490; J7030

== ENCOUNTER 2021-02-11 09:47 | Outpatient (CLI) | payer MEDICARE, OTHER, SELFPAY ==
[2021-02-11 12:22] LABS: Basophils # 0.1 10^3/uL (0.0-0.1); Eosinophils # 0.1 10^3/uL (0.0-0.8); Eosinophils % 1.9 %; Hematocrit 28.3 % (37.0-47.0); Hemoglobin 8.6 g/dL (11.5-15.3); Lymphocytes # 1.8 10^3/uL (0.8-4.8); Lymphocytes % 26.8 %; Mean Corpuscular HGB Conc 30.4 g/dL (30.0-36.0); Mean Corpuscular Hemoglobin 30.1 pg (28.0-34.0); Mean Platelet Volume 10.5 fL (7.4-10.4); Monocytes # 0.5 10^3/uL (0.2-0.9); Monocytes % 7.2 %; Neutrophils # 4.29 10^3/uL (1.8-7.7); Nucleated Red Blood Cells % 0 %; Platelet Count 390 10^3/cmm (130-400); Red Blood Count 2.86 10^6/uL (4.1-5.3); Red Cell Distribution Width 15.9 % (12.1-15.1); White Blood Count 6.8 10^3/uL (4.0-10.0)
[2021-02-11 12:49] LABS: Alanine Aminotransferase 11 U/L (0-33); Albumin Level 3.2 g/dL (3.5-5.2); Alkaline Phosphatase 115 IU/L (35-105); Anion Gap 16.7 (5-19); Aspartate Amino Transferase 21 U/L (0-32); Blood Urea Nitrogen 37 mg/dL (8-23); CA 125 32.4 U/mL (0-35); Calcium 7.1 mg/dL (8.5-10.5); Cancer Antigen 19 9 21.52 U/mL (0-35); Carbon Dioxide 22 mmol/L (22-29); Chloride 107 mmol/L (98-107); Glucose 75 mg/dL (65-115); Osmolality Calculated 301 mOsm/kg (285-295); Potassium 3.7 mmol/L (3.5-5.1); Sodium 142 mmol/L (136-145); Total Bilirubin 0.2 mg/dL (0.15-1.2); Total Protein 6.2 g/dL (6.6-8.7)
[2021-02-11 13:11] LABS: Carcinoembryonic Antigen 5.4 ng/mL (0.0-4.7)
--- NOTE | 2021-02-11 14:38 | ONC CON_ITS ---
Dr. Calderon New Patient Note Patient: Zaira Diaz Unit #: [id number]: 1940 Dicatated By: Josue Calderon M.D.Date of Visit: February 11, 2021 Onc MED New Patient/Consult Referring Physician: Dr. AMARIS MUNGUIA M.D. History of Present Illness: Ms. Zaira villagomez, is a 80-year-old female with a history of chronic diarrhea for which she underwent GI evaluation in 2018 at that time she underwent extensive work-up including colonoscopy by Dr. Anglin in [facility], as per patient she was told her colon was normal and next colonoscopy will be required in 5 years. Patient continues to have diarrhea and eventually underwent CT scan of abdomen pelvis on December 27, 2020 which showed marked soft tissue thickening with nodularity involving the distal colon/rectum and anus with extension into perineum and vagina. Large amount of edema soft tissue thickening which is new since 2016. Diffuse soft tissue anasarca. Bilateral lower lung field opacification. Soft tissue mass involving superior spleen with peripheral enhancement mass measuring 3.2 x 1.8 cm, new since 2016. Diffuse increased fluid within the colon is probably related to partial obstruction by increased soft tissue near perineum and rectum., As per patient, CT scan of abdomen pelvis showed abnormality in the lung bases, for which she underwent CT scan of chest on January 14, 2021 which showed right upper lobe lung mass measuring 4.3 cm and also a centimeter solid noncalcified nodule in the right middle lobe, a pleural-based 5.5 x 2.4 cm mass seen in the posterior basal segment of right lower lobe. A 0.93 cm soft tissue nodules seen in the left lower lobe of the lung. No mediastinal lymphadenopathy noted. No destructive bone lesion seen. Patient was referred to pulmonology and on January 26, [address] PET scan which showed hypermetabolic right upper lobe cavitary nodule, probably local metastatic disease in the right hilar node. Abutting the splenic surface of the left hemidiaphragm, there is a region of activity measuring 3.6 x 2.3 cm with SUV of 10.7, very likely malignant. Right loculated effusion or round atelectasis and left lower lobe nodules are FDG negative. 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 Past medical history significant for total abdominal hysterectomy bilateral salpingo-oophorectomy done on March 19, 2016 for benign appearing 10 cm mass originating from the left ovary. Bilateral total knee replacement Back surgery x2 for bulging disc Patient is a former smoker smoked for 20+ years and quit smoking at age 45 denies alcohol use Patient denies any night sweats, denies any recurrent fever, denies any melena or hematochezia, denies any hemoptysis or hematemesis, denies any jaundice, denies any new bony pains but off and on headaches. And significant weight loss e.g. 80 pounds over 1 year. Past Medical History: Ms. Diaz's medical history consists of chronic kidney disease (stage III), hyperlipidemia, hypertension, and osteoporosis. Past Surgical History: Ms. Diaz's surgical/procedural history consists of cataract excision, bronchoscopy in 2020, hysterectomy/bilateral salpingectomy-oophorectomy in 2015, back surgery for bulging disc x 2 in 2015, cholecystectomy in 2009, bilateral total knee replacement in 2000, and PAIN STIMULATOR in 1999. Medications: amLODIPine Besylate Tablet Oral PRN, Furosemide 2 Tablet (of 40 mg) Oral daily, Levothyroxine Sodium 1 Tablet (of 25 mcg) Oral daily, Omeprazole 1 Tablet (of 40 mg) Capsule Delayed Release Oral daily, Potassium Chloride ER 1 Capsule (of 10 meq) Capsule, controlled release Oral b.i.d. Allergies: Penicillins Social History: Ms. Diaz is . Ms. Diaz quit smoking 36 years ago but had smoked 1.0 pack/day for 20 years. She has no history of drinking. Family History: Ms. Diaz's mother at age 95: heart disease, and stroke, and type II diabetes. Ms. Diaz's father at age 57: congestive heart failure. Ms. Diaz has 2 brothers: 2 . Ms. Diaz's first brother's congestive heart failure. Another brother's congestive heart failure. She has 4 sisters: 4 . Review Of Symptoms: Review of Systems is not available for this patient. Vital Signs: Performed on February 11, 2021 11:20: 7, 0, 0.00, 0.00 sq.m, 99 %, 77 /min, 18 /min, 141/69 mm(hg) (HIGH), 96.9 F (LOW), and 113.8 lbs (HIGH). Performance Status: 0 - Fully active, able to carry on all predisease activities without restrictions. (ECOG) Physical Examination: ENMT - No mouth sores, no thrush, no jaundice, Respiratory - Lungs are clear to auscultation, Cardiovascular - Regular rate and rhythm of heart, Abdomen - Soft, bowel sounds present no mass palpable, no tenderness, Extremities - 2+ edema bilaterally. Lab/Imaging: Most recent lab results are not available for this patient. Impression: Adenocarcinoma per right upper lobe lung biopsy done on February 05, 2021, also showed metastatic adenocarcinoma involving right hilar lymph node, immunohistochemistry stains, PD-L1 status is pending CT PET scan done on January 26, 2021 showed 3.1 x 2.3 cm mass in right upper lobe SUV 4.3, in the superior right hilum lymph node with SUV of 2.7. Questionable activity is present in subcentimeter right paratracheal and subaortic lymph node. Abutting the spleen surface of left hemidiaphragm, there is region of activity measuring 3.6 x 2.3 cm with SUV of 10.7. Lobulated right pleural effusion or round atelectasis is FDG negative as well as posterior left lower lobe lung nodule is FDG negative. CT scan of chest done on January 14, 2021 showed 4.3 cm cavitary mass in the right upper lobe of the lung, 0.93 cm solid nodule in the left lower lobe lung. 5.5 x 2.4 cm mass in the posterior basal segment of the right lung and 1 cm nodule in the right middle lobe CT scan of abdomen pelvis done on December 27, 2020 showed marked soft tissue thickening with nodularity involving the distal colon/rectum/anus, large amount of edema soft tissue thickening involving perineum and vagina. Diffuse soft tissue anasarca. Bilateral lower lung field opacification. Soft tissue mass involving superior spleen with peripheral enhancement measuring 3.2 x 1.8 cm. Chronic diarrhea, underwent colonoscopy by Dr. Anglin in [place] in 2018 it was unremarkable Former smoker quit smoking at age 45 Plan: Discussed with patient regarding her pathology report which confirmed adenocarcinoma involving right upper lobe and right hilar lymph node, and her CT PET scan showed no uptake in the right lower lobe mass seen on CT scan of chest, mass could be due to round atelectasis or loculated pleural effusion. No uptake seen in the left lower lobe lung nodule and but uptake in the left upper abdomen, metastatic disease versus infection/inflammation. At this point, will consider ultrasound/CT-guided FNA of left upper abdominal mass, if it is negative, then based on CT PET scan, patient has locoregional disease, stage II versus stage IIIa, and if MRI scan of the brain is unremarkable, will consider combined chemoradiation on the other hand if FNA left upper quadrant confirmed metastatic disease, then treatment will be palliative based on molecular profiling and PD-L1 status. Patient has history of off and on lower extremity edema sometime fluid in the lung for which she take Lasix on as-needed basis, We will also obtain records from Dr. Anglin's office in [facility] regarding her GI work-up and colonoscopy. At this point we will schedule her for ultrasound/CT-guided FNA of left upper abdomen mass and MRI scan of the brain and also consider tumor marker CEA, CA 19???9,CA-125, patient return to clinic after MRI scan of the brain with above-mentioned work-up and CBC CMP. Signed By: Josue Calderon M.D. <<Signature on File>>
== END 2021-02-11 09:48 | disposition home or self-care (01) ==
LOC: ONCMED 09:51
PROVIDERS: PCP Family Medicine; Visit Provider Internal Medicine Hematology & Oncology
DX: C34.11 Malignant neoplasm of upper lobe, right bronchus or lung (principal); C77.1 Secondary and unspecified malignant neoplasm of intrathoracic lymph nodes; J90 Pleural effusion, not elsewhere classified; J98.11 Atelectasis; R19.7 Diarrhea, unspecified; R97.8 Other abnormal tumor markers; Z87.891 Personal history of nicotine dependence; Z79.899 Other long term (current) drug therapy
CPT/HCPCS: 80053; 82378; 85025; 86301; 86304; 99204

== ENCOUNTER 2021-03-11 10:02 | Outpatient (CLI) | payer MEDICARE, OTHER, SELFPAY ==
--- NOTE | 2021-03-11 10:15 | MR_ITS ---
WS: [id number] MRI HEAD WITH CONTRAST TECHNIQUE: Sagittal T1, T2 axial, T2 axial FLAIR, axial susceptibility weighted imaging, axial diffus ion weighted images, and coronal T2 images were obtained. Pre and post-T1 axial and post T1 coronal i mages. ADC and FSPGR images. CLINICAL INFORMATION: ADENOCARCINOMA COMPARISON: None. FINDINGS: No evidence of restricted diffusion to suggest acute ischemia. Mild small vessel changes with moderat e parenchymal volume loss. Normal vascular flow voids at the skull base. No extra-axial fluid collect ions. No evidence of mass or mass effect. Numerous chronic lacunar infarcts right greater than left c erebellum. Mild mucosal thickening ethmoid air cells. Mild mucosal thickening left mastoid tip. No he mosiderin on susceptibly weighted images. Moderate symmetric atrophy temporal lobes and hippocampal f ormations. Normal optic chiasm and pituitary infundibulum. No abnormal gadolinium enhancement. No evidence of enhancing intracranial metastatic disease. Normal dural venous sinuses. MR/MR head wo/w con [id number] IMPRESSION: 1. No evidence of restricted diffusion to suggest acute ischemia. 2. No evidence of enhancing intracranial metastatic disease. 3. Mild small vessel changes moderate parenchymal volume loss. 4. Multiple chronic lacunar infarcts in the right greater than left cerebellum . 5. No hemosiderin on susceptibly weighted images. 6. Moderate symmetric atrophy temporal lobes hippocampal formations.
== END 2021-03-11 10:03 | disposition home or self-care (01) ==
PROVIDERS: PCP Family Medicine; Visit Provider Internal Medicine Hematology & Oncology
DX: C80.1 Malignant (primary) neoplasm, unspecified (principal); I63.81 Other cerebral infarction due to occlusion or stenosis of small artery; G31.9 Degenerative disease of nervous system, unspecified
CPT/HCPCS: 70553; A9579

== ENCOUNTER → 2021-03-27 09:44 | Outpatient (BNVA) | payer MEDICARE, OTHER, SELFPAY | PROVIDERS: PCP Family Medicine; Visit Provider Internal Medicine Hematology & Oncology | DX: R91.8 Other nonspecific abnormal finding of lung field (principal) | CPT/HCPCS: 80053; 85025 ==

== ENCOUNTER 2021-03-29 08:08 | Outpatient (CLI) | payer MEDICARE, OTHER, SELFPAY ==
--- NOTE | 2021-04-11 08:51 | ONC FU_ITS ---
Dr. Calderon follow up note Patient: Zaira Diaz Unit #: [id number]: 1940 Dicatated By: Josue Calderon M.D.Date of Visit:Mar 29, 2021 Onc Med Follow-up/Prog Note History of Present Illness: Ms. Zaira villagomez, is a 80-year-old female with a history of chronic diarrhea for which she underwent GI evaluation in 2018 at that time she underwent extensive work-up including colonoscopy by Dr. Anglin in [facility], as per patient she was told her colon was normal and next colonoscopy will be required in 5 years. Patient continues to have diarrhea and eventually underwent CT scan of abdomen pelvis on December 27, 2020 which showed marked soft tissue thickening with nodularity involving the distal colon/rectum and anus with extension into perineum and vagina. Large amount of edema soft tissue thickening which is new since 2016. Diffuse soft tissue anasarca. Bilateral lower lung field opacification. Soft tissue mass involving superior spleen with peripheral enhancement mass measuring 3.2 x 1.8 cm, new since 2016. Diffuse increased fluid within the colon is probably related to partial obstruction by increased soft tissue near perineum and rectum., As per patient, CT scan of abdomen pelvis showed abnormality in the lung bases, for which she underwent CT scan of chest on January 14, 2021 which showed right upper lobe lung mass measuring 4.3 cm and also a centimeter solid noncalcified nodule in the right middle lobe, a pleural-based 5.5 x 2.4 cm mass seen in the posterior basal segment of right lower lobe. A 0.93 cm soft tissue nodules seen in the left lower lobe of the lung. No mediastinal lymphadenopathy noted. No destructive bone lesion seen. Patient was referred to pulmonology and on January 26, [address] PET scan which showed hypermetabolic right upper lobe cavitary nodule, probably local metastatic disease in the right hilar node. Abutting the splenic surface of the left hemidiaphragm, there is a region of activity measuring 3.6 x 2.3 cm with SUV of 10.7, very likely malignant. Right loculated effusion or round atelectasis and left lower lobe nodules are FDG negative. 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 Past medical history significant for total abdominal hysterectomy bilateral salpingo-oophorectomy done on March 19, 2016 for benign appearing 10 cm mass originating from the left ovary. Bilateral total knee replacement Back surgery x2 for bulging disc Patient is a former smoker smoked for 20+ years and quit smoking at age 45 denies alcohol use Patient denies any night sweats, denies any recurrent fever, denies any melena or hematochezia, denies any hemoptysis or hematemesis, denies any jaundice, denies any new bony pains but off and on headaches. And significant weight loss e.g. 80 pounds over 1 year. Came for follow-up, denies any specific complaints, no nausea or vomiting, no diarrhea or constipation, no headaches no blurred vision no double vision, patient had MRI scan of the brain which shows no evidence of mets patient was scheduled for biopsy of left upper quadrant mass abutting spleen, as per nurse Dr. Rocha, radiologist said biopsy is not possible Medications: amLODIPine Besylate Tablet Oral PRN, Furosemide 2 Tablet (of 40 mg) Oral daily, Levothyroxine Sodium 1 Tablet (of 25 mcg) Oral daily, Omeprazole 1 Tablet (of 40 mg) Capsule Delayed Release Oral daily, Potassium Chloride ER 1 Capsule (of 10 meq) Capsule, controlled release Oral b.i.d. Allergies: Penicillins Review of Systems: Review of Systems is not available for this patient. Vital Signs: Performed on Mar 29, 2021 08:34 Weight - 122.6 lbs (HIGH) BSA - 0.00 sq.m BMI - 0.00 Temperature - 97.9 F (LOW) Pulse - 65 /min Respiration - 18 /min BP - 125/68 mm(hg) O2 Sat - 99 % Pain - 7 Fatigue - 6 Performance Status: 0 - Fully active, able to carry on all predisease activities without restrictions. (ECOG) Physical Examination: ENMT - . No mouth sores, no thrush, no jaundice, Respiratory - Lungs are clear to auscultation, Cardiovascular - Regular rate and rhythm of heart, Abdomen - Soft, bowel sounds present, Extremities - No visible edema. Lab/Imaging: Most recent lab results are not available for this patient. Impression: Adenocarcinoma per right upper lobe lung biopsy done on February 05, 2021, also showed metastatic adenocarcinoma involving right hilar lymph node, immunohistochemistry stains, PD-L1Was not performed because of insufficient specimen CT PET scan done on January 26, 2021 showed 3.1 x 2.3 cm mass in right upper lobe SUV 4.3, in the superior right hilum lymph node with SUV of 2.7. Questionable activity is present in subcentimeter right paratracheal and subaortic lymph node. Abutting the spleen surface of left hemidiaphragm, there is region of activity measuring 3.6 x 2.3 cm with SUV of 10.7. Lobulated right pleural effusion or round atelectasis is FDG negative as well as posterior left lower lobe lung nodule is FDG negative. CT scan of chest done on January 14, 2021 showed 4.3 cm cavitary mass in the right upper lobe of the lung, 0.93 cm solid nodule in the left lower lobe lung. 5.5 x 2.4 cm mass in the posterior basal segment of the right lung and 1 cm nodule in the right middle lobe CT scan of abdomen pelvis done on December 27, 2020 showed marked soft tissue thickening with nodularity involving the distal colon/rectum/anus, large amount of edema soft tissue thickening involving perineum and vagina. Diffuse soft tissue anasarca. Bilateral lower lung field opacification. Soft tissue mass involving superior spleen with peripheral enhancement measuring 3.2 x 1.8 cm. Chronic diarrhea, underwent colonoscopy by Dr. Anglin in [place] in 2018 it was unremarkable Former smoker quit smoking at age 45 Plan: Discussed with patient regarding her MRI brain scan report which shows no evidence of metastatic disease, her tumor marker CA 19???9, CA-125, CEA all within normal range, PD-L1 was not done because of insufficient specimen Clinically, patient doing well with no new signs symptoms staging work-up including MRI scan of brain shows no brain mets but concern is left upper quadrant mass abutting spleen if it is biopsy-proven metastatic disease, then we will treat her as a metastatic adenocarcinoma probably lung is the primary on the other hand biopsy shows no evidence of metastatic disease then will consider combined chemoradiation as malignant process is contained in the right lung only. As a local interventional radiologist would not consider biopsy of left upper quadrant mass because of technical reasons, we will refer her to [facility] for further evaluation regarding possible biopsy from left upper quadrant mass and also confirmation of diagnosis/primary. Patient return to clinic week after her visit to [place] unless she decided to pursue treatment there Signed By: Josue Calderon M.D. <<Signature on File>>
== END 2021-03-29 08:09 | disposition home or self-care (01) ==
LOC: ONCMED 08:17
PROVIDERS: PCP Family Medicine; Visit Provider Internal Medicine Hematology & Oncology
DX: C34.11 Malignant neoplasm of upper lobe, right bronchus or lung (principal); C77.1 Secondary and unspecified malignant neoplasm of intrathoracic lymph nodes; R19.7 Diarrhea, unspecified; Z87.891 Personal history of nicotine dependence
CPT/HCPCS: 99214

== ENCOUNTER 2021-05-10 09:42 | Outpatient (CLI) | payer MEDICARE, OTHER, SELFPAY ==
[2021-05-10 10:13] VITALS: BMI 21.8
--- NOTE | 2021-05-10 10:17 | ECG_ITS ---
[facility] Test Date: 2021-05-10 Pat Name: Zaira Diaz Department: Room: Gender: Female Ticket Puller: : 1940 Requested By: Darryl Bliss Order Number: [id number] Yoselin MD: Darryl Bliss M.D. Interpretive Statements NAME OF STUDY: LEXISCAN SESTAMIBI STRESS TEST INDICATION: [sob, ] Procedure: At the baseline, the blood pressure was 140/66 mmHg with a heart rate of 65 bpm. The electrocardiogram showed normal sinus rhythm, normal axis with normal ST and T's. The Lexiscan was infused over a period of 20 seconds. A total of 0.4 mg of Lexiscan was infused. The stress phase was continued for a total of 5 minutes. Heart rate was at the end of stress phase was 78 bpm and a blood pressure of 144/59 mmHg. The EKG at the peak infusion revealed since normal sinus rhythm with no significant ST-T wave changes. Sestamibi was injected 20 seconds after the Lexiscan infusion. Blood pressure at the end of recovery phase was 132/56 mmHg with a heart rate of 78 bpm. Conclusion: 1. Normal EKG response to Lexiscan infusion 2. No Lexiscan induced chest pain or cardiac arrhythmia. 3. Normal blood pressure and heart rate response. 4. Sestamibi/sestamibi perfusion scan pending; see separate report. Electronically Signed On 06-02-2021 12:26:01 CDT by Darryl Bliss M.D. [email or web address]
--- NOTE | 2021-05-10 10:18 | NMCV_ITS ---
NM cecile perf SPECT r/s* [id number] Zaira Diaz Age: 80 Gender: F : 1940 Exam Date: 05/10/2021 11:24 Ordering Phys: Darryl Bliss M.D ([email or web address]) Technologist: VINNY Brown Exam Location: [facility] Indications: SHORTNESS OF BREATH STRESS TEST Please see separate stress test report in [facility] for full findings IMAGE PROTOCOL Rest/Stress 1 Lexiscan Day Radiopharmaceutical Dose (mCi) Administration Site Administered by Rest: Tc-99m 11.0 IV VINNY Brown Sestamibi Stress:Tc-99m 32.2 IV VNINY Montague Sestamibi Rest: 10-May-2021 60 Discovery 630 Stress: 10-May-2021 30 Discovery 630 0.4mg Lexiscan. Images obtained in supine and prone position. SPECT RESULTS Technical Quality: Good Raw Data Analysis: Subdiaphragmatic activity; tried multiple attempts to get good pictures using food and drinks to help with bowel. Best images possible Image Corrections: No attenuation or motion correction applied Summed Stress Score: 10 Summed Rest Score: 3 Summed Difference Score: 7 PERFUSION FINDINGS There is a moderate sized reversible perfusion defect in the apical, apical inferior and apical lateral torrez. This represents ischemia in these territories. FUNCTIONAL RESULTS (calculated via Gated SPECT) Stress Image LV EF (%): 64 Stress EDV (mL):123 TID: 1.06 Stress ESV (mL):44 FUNCTIONAL FINDINGS: There is normal left ventricular systolic function. IMPRESSIONS 1. Abnormal myocardial perfusion imaging with moderate sized area of ischemia noted in the apical, apical lateral and apical inferior torrez. 2. LV systolic function is normal Darryl Bliss MD (Electronically Signed) Final Date: 15 May 2021 10:11 S
--- NOTE | 2021-05-10 11:45 | USCV_ITS ---
Joe Zaira Age: 80 Gender: F : 1940 Exam Date: 05/10/2021 10:20 Ordering Phys: Darryl Bliss M.D ([email or web address]) Technologist: Dhara Johnston Exam Location: [facility] [place] Indication: edema, unspecified BP: / HR: 63 Rhythm: Sinus Technical Quality: Adequate MEASUREMENTS (Male / Female) Normal Values 2D ECHO LV Diastolic Diameter PLAX 4.5 cm 4.2 - 5.9 / 3.9 - 5.3 cm LV Systolic Diameter PLAX 2.6 cm LV Chamber Size 3.0 cm IVS Diastolic Thickness 0.8 cm 0.6 - 1.0 / 0.6 - 0.9 cm IVS Systolic Thickness 1.2 cm LVPW Diastolic Thickness 1.1 cm 0.6 - 1.0 / 0.6 - 0.9 cm LVPW Systolic Thickness 1.3 cm RV Chamber Size 3.4 cm LVOT Diameter 2.1 cm LV Ejection Fraction 2D Teich 73.7 % LV Ejection Fraction MOD 2C 76.4 % LV Ejection Fraction 2C AL 75.6 % LA Diameter 3.6 cm LA Width 3.1 cm LA Height 5.1 cm RA Width 4.0 cm RA Height 5.1 cm Aorta at Sinotubular Diameter 3.0 cm M-MODE LV Diastolic Diameter MM 4.8 cm 4.2 - 5.9 / 3.9 - 5.3 cm LV Systolic Diameter MM 3.3 cm LV Ejection Fraction MM Teich 59.5 % IVS Diastolic Thickness MM 1.0 cm 0.6 - 1.0 / 0.6 - 0.9 cm IVS Systolic Thickness MM 1.3 cm LVPW Diastolic Thickness MM 1.1 cm 0.6 - 1.0 / 0.6 - 0.9 cm LVPW Systolic Thickness MM 1.5 cm Aortic Annulus Diameter 3.1 cm LA Ao Ratio MM 1.2 MV E Point Septal Separation 0.8 cm DOPPLER AV Peak Velocity 158.0 cm/s LVOT Peak Velocity 103.0 cm/s AV Area Cont Eq vti 2.5 cm squared AV Area Cont Eq pk 2.2 cm squared MV Area PHT 3.2 cm squared Mitral E to A Ratio 0.8 MV E' Velocity 53.0 cm/s Mitral E to MV E' Ratio 9.0 Mitral E to LV E' Lateral Ratio 7.2 Mitral E to LV E' Septal Ratio 12.2 TR Peak Velocity 257.3 cm/s TR Peak Gradient 26.5 mmHg TR Mean Velocity 175.0 cm/s TR Mean Gradient 14.9 mmHg TR Velocity Time Integral 64.9 cm TV Peak E Velocity 77.0 cm/s Right Atrial Pressure 3.0 mmHg Pulmonary Artery Systolic Pressu 29.5 mmHg PV Peak Velocity 136.0 cm/s RV Acceleration Time 0.1 s RV Ejection Time 0.3 s RV AcT/ET 0.3 FINDINGS Left Ventricle Normal left ventricular size. LV systolic function is normal with EF of 65%. No regional wall motion abnormalities. Grade 1 diastolic dysfunction Right Ventricle The right ventricle is normal in size and function. Right Atrium The right atrium is normal in size. Interatrial septum is aneurysmal Left Atrium The left atrium is normal in size. Mitral Valve Structurally normal mitral valve without significant stenosis or prolapse. There is no mitral regurgitation. Aortic Valve Structurally normal aortic valve without significant sclerosis or stenosis. There is no aortic regurgitation. Tricuspid Valve Structurally normal tricuspid valve without significant stenosis. Mild tricuspid regurgitation. Pulmonary artery systolic pressure is normal. Pulmonic Valve Structurally normal pulmonic valve without significant stenosis. There is no pulmonic regurgitation. Pericardium Normal pericardium without effusion. Aorta Normal ascending aorta dimension. CONCLUSIONS LV systolic function is normal with EF of 65% Grade 1 diastolic dysfunction Interatrial septum is aneurysmal Mild tricuspid regurgitation No comparison studies are available Darryl Bliss MD (Electronically Signed) Final Date: 19 May 2021 19:24 S
[2021-05-10] MEDS: regadenoson 0.4 Mg/5 ml Syringe IVP (12:47)
[2021-05-10 12:49] VITALS: BP 132/56; PULSE 78
== END 2021-05-10 09:43 | disposition home or self-care (01) ==
PROVIDERS: PCP Family Medicine; Visit Provider Internal Medicine
DX: R60.9 Edema, unspecified (principal); I07.1 Rheumatic tricuspid insufficiency; R06.02 Shortness of breath; I25.9 Chronic ischemic heart disease, unspecified
CPT/HCPCS: 78452; 93017; 93306; A9500; J2785

== ENCOUNTER → 2021-07-30 12:00 | Outpatient (BNVA) | payer MEDICARE, OTHER, SELFPAY | PROVIDERS: PCP Family Medicine; Visit Provider Family Medicine | DX: E78.2 Mixed hyperlipidemia (principal); I10 Essential (primary) hypertension; E03.9 Hypothyroidism, unspecified | CPT/HCPCS: 80053; 80061; 84443; 85025 ==

== ENCOUNTER 2021-08-06 10:14 | Outpatient (CLI) | payer MEDICARE, OTHER, SELFPAY ==
[2021-08-06 10:48] LABS: Basophils # 0.1 10^3/uL (0.0-0.1); Basophils % 1.1 %; Eosinophils # 0.3 10^3/uL (0.0-0.8); Eosinophils % 4.9 %; Hematocrit 33.3 % (37.0-47.0); Hemoglobin 10.1 g/dL (11.5-15.3); Lymphocytes # 1.5 10^3/uL (0.8-4.8); Lymphocytes % 23.2 %; Mean Corpuscular HGB Conc 30.3 g/dL (30.0-36.0); Mean Corpuscular Hemoglobin 26.6 pg (28.0-34.0); Mean Corpuscular Volume 87.6 fl (81-99); Mean Platelet Volume 10.6 fL (7.4-10.4); Monocytes # 0.6 10^3/uL (0.2-0.9); Monocytes % 9.4 %; Neutrophils # 4.03 10^3/uL (1.8-7.7); Neutrophils % 61.1 %; Nucleated Red Blood Cells % 0 %; Platelet Count 236 10^3/cmm (130-400); White Blood Count 6.6 10^3/uL (4.0-10.0)
[2021-08-06 11:07] LABS: Alanine Aminotransferase 9 U/L (0-33); Alkaline Phosphatase 172 IU/L (35-105); Anion Gap 18.1 (5-19); Aspartate Amino Transferase 17 U/L (0-32); Blood Urea Nitrogen 41 mg/dL (8-23); Calcium 8.8 mg/dL (8.5-10.5); Carbon Dioxide 22 mmol/L (22-29); Chloride 106 mmol/L (98-107); Globulin 2.6 g/dL (1.3-4.6); Glucose 95 mg/dL (65-115); Osmolality Calculated 302 mOsm/kg (285-295); Potassium 5.1 mmol/L (3.5-5.1); Sodium 141 mmol/L (136-145); Total Bilirubin 0.2 mg/dL (0.15-1.2); Total Protein 6.6 g/dL (6.6-8.7)
== END 2021-08-06 10:15 | disposition home or self-care (01) ==
LOC: ONCMED 10:17
PROVIDERS: PCP Family Medicine; Visit Provider Internal Medicine Hematology & Oncology
DX: C34.11 Malignant neoplasm of upper lobe, right bronchus or lung (principal)
CPT/HCPCS: 36415; 80053; 85025

== ENCOUNTER 2021-08-09 06:31 | Outpatient (CLI) | payer MEDICARE, OTHER, SELFPAY ==
--- NOTE | 2021-08-11 18:29 | ONC FU_ITS ---
Dr. Calderon follow up note Patient: Zaira Diaz Unit #: [id number]: 1940 Dicatated By: Josue Calderon M.D.Date of Visit:Aug 09, 2021 Onc Med Follow-up/Prog Note History of Present Illness: Ms. Zaira Diaz, is a 81-year-old female with a history of chronic diarrhea for which she underwent GI evaluation in 2018 at that time she underwent extensive work-up including colonoscopy by Dr. Anglin in [facility], as per patient she was told her colon was normal and next colonoscopy will be required in 5 years. Patient continues to have diarrhea and eventually underwent CT scan of abdomen pelvis on December 27, 2020 which showed marked soft tissue thickening with nodularity involving the distal colon/rectum and anus with extension into perineum and vagina. Large amount of edema soft tissue thickening which is new since 2016. Diffuse soft tissue anasarca. Bilateral lower lung field opacification. Soft tissue mass involving superior spleen with peripheral enhancement mass measuring 3.2 x 1.8 cm, new since 2016. Diffuse increased fluid within the colon is probably related to partial obstruction by increased soft tissue near perineum and rectum., As per patient, CT scan of abdomen pelvis showed abnormality in the lung bases, for which she underwent CT scan of chest on January 14, 2021 which showed right upper lobe lung mass measuring 4.3 cm and also a centimeter solid noncalcified nodule in the right middle lobe, a pleural-based 5.5 x 2.4 cm mass seen in the posterior basal segment of right lower lobe. A 0.93 cm soft tissue nodules seen in the left lower lobe of the lung. No mediastinal lymphadenopathy noted. No destructive bone lesion seen. Patient was referred to pulmonology and on January 26, [address] PET scan which showed hypermetabolic right upper lobe cavitary nodule, probably local metastatic disease in the right hilar node. Abutting the splenic surface of the left hemidiaphragm, there is a region of activity measuring 3.6 x 2.3 cm with SUV of 10.7, very likely malignant. Right loculated effusion or round atelectasis and left lower lobe nodules are FDG negative. 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 Past medical history significant for total abdominal hysterectomy bilateral salpingo-oophorectomy done on March 19, 2016 for benign appearing 10 cm mass originating from the left ovary. Bilateral total knee replacement Back surgery x2 for bulging disc Patient is a former smoker smoked for 20+ years and quit smoking at age 45 denies alcohol use Patient denies any night sweats, denies any recurrent fever, denies any melena or hematochezia, denies any hemoptysis or hematemesis, denies any jaundice, denies any new bony pains but off and on headaches. And significant weight loss e.g. 80 pounds over 1 year. Patient was referred to [facility] for evaluation and biopsy of left upper quadrant lesion, she was seen by Dr. Fabien Thomas on April 11 2021, at that time left upper quadrant/splenic lesion biopsy was planned, prior to that cardia clearance was required as per note, circulating tumor DNA panel was also done to identify actionable genomic alterations. Came for follow-up, denies any specific complaint except bilateral shoulder pain, she is attributing that to arthritis as she has history of back pain in the past for which she received steroid injection. Patient was referred to [facility] for evaluation and for biopsy of left upper abdomen lesion for staging purposes. As per patient, prior to biopsy cardiac clearance was required, as per patient it took so long to get cardiac clearance, and system awaiting left upper quadrant biopsy as per patient she called couple of times but now have decided not to go and wants to get all the work-up and care done here. Patient denies any hemoptysis or hematemesis, denies any weight loss rather weight gain, as per patient she has gained about 20 to 30 pounds since her last visit. Denies any headaches blurred vision or double vision, denies any hematuria or dysuria denies any melena or hematochezia denies any shortness of breath. Medications: amLODIPine Besylate Tablet Oral PRN, Furosemide 2 Tablet (of 40 mg) Oral daily, Levothyroxine Sodium 1 Tablet (of 25 mcg) Oral daily, Omeprazole 1 Tablet (of 40 mg) Capsule Delayed Release Oral daily, oxyCODONE-Acetaminophen 1 - 2 Tablet (of 5-325 mg/5mL) Solution Oral q 4 to 6 hours PRN, Potassium Chloride ER 1 Capsule (of 10 meq) Capsule, controlled release Oral b.i.d. Allergies: Penicillins Review of Systems: Review of Systems is not available for this patient. Vital Signs: Performed on Aug 09, 2021 10:15 Height - 62.50 in Weight - 144.0 lbs (HIGH) BSA - 1.67 sq.m BMI - 25.92 Temperature - 97.7 F (LOW) Pulse - 62 /min Respiration - 18 /min BP - 148/66 mm(hg) (HIGH) O2 Sat - 100 % Pain - 8 Fatigue - 7 Performance Status: 1 - No physically strenuous activity, but ambulatory and able to carry out light or sedentary work (e.g. office work, light house work). (ECOG) Physical Examination: ENMT - No mouth sores, no thrush, no jaundice, Respiratory - Lungs are clear to auscultation, Cardiovascular - Regular rate and rhythm of heart, Abdomen - Soft, bowel sounds present, Extremities - No visible edema or rash, mild tenderness in both shoulder joints but no overlying skin changes or swelling. Lab/Imaging: Most recent lab results are not available for this patient. Impression: Adenocarcinoma per right upper lobe lung biopsy done on February 05, 2021, also showed metastatic adenocarcinoma involving right hilar lymph node, immunohistochemistry stains, PD-L1 status is pending CT PET scan done on January 26, 2021 showed 3.1 x 2.3 cm mass in right upper lobe SUV 4.3, in the superior right hilum lymph node with SUV of 2.7. Questionable activity is present in subcentimeter right paratracheal and subaortic lymph node. Abutting the spleen surface of left hemidiaphragm, there is region of activity measuring 3.6 x 2.3 cm with SUV of 10.7. Lobulated right pleural effusion or round atelectasis is FDG negative as well as posterior left lower lobe lung nodule is FDG negative. CT scan of chest done on January 14, 2021 showed 4.3 cm cavitary mass in the right upper lobe of the lung, 0.93 cm solid nodule in the left lower lobe lung. 5.5 x 2.4 cm mass in the posterior basal segment of the right lung and 1 cm nodule in the right middle lobe CT scan of abdomen pelvis done on December 27, 2020 showed marked soft tissue thickening with nodularity involving the distal colon/rectum/anus, large amount of edema soft tissue thickening involving perineum and vagina. Diffuse soft tissue anasarca. Bilateral lower lung field opacification. Soft tissue mass involving superior spleen with peripheral enhancement measuring 3.2 x 1.8 cm. Chronic diarrhea, underwent colonoscopy by Dr. Anglin in [place] in 2018 it was unremarkable Former smoker quit smoking at age 45 Plan: Discussed with patient regarding her labs white blood count 6.6 hemoglobin 10.1 g per record 33.3 platelets 236,000 CMP within normal limit except creatinine 2.2 compared to 1.5 previously addressed within normal range Clinically, patient is doing reasonably well but now with progressive bilateral shoulder pain and also has chronic back pain, as per patient she was getting cardiac clearance for splenic/left upper quadrant lesion biopsy at [place] but it took so long and she is still waiting for splenic/left upper quadrant lesion biopsy. Patient has decided not to go to [place] for any further work-up or treatment rather wants to get everything done here, at this point we will obtain baseline CT PET scan prior to the treatment to assess disease status as initially was not clear whether she has metastatic disease to the spleen or she has local regional disease, if PET scan shows no new lesions, then will consider combined chemoradiation with weekly carboplatin/Taxol while monitoring splenic lesion as patient does not want to go to [place] for splenic biopsy and local radiologist would not consider it. Patient has mild but progressive renal insufficiency, we will refer her to nephrology for evaluation and also consider anemia work-up, patient will return to clinic after CT PET scan for further discussion and planning, will also consider x-ray bilateral shoulder. Signed By: Josue Calderon M.D. <<Signature on File>>
== END 2021-08-09 06:32 | disposition home or self-care (01) ==
LOC: ONCMED 06:32
PROVIDERS: PCP Family Medicine; Visit Provider Internal Medicine Hematology & Oncology
DX: C34.11 Malignant neoplasm of upper lobe, right bronchus or lung (principal); C77.2 Secondary and unspecified malignant neoplasm of intra-abdominal lymph nodes; R19.7 Diarrhea, unspecified; Z87.891 Personal history of nicotine dependence; Z79.899 Other long term (current) drug therapy
CPT/HCPCS: 99214

== ENCOUNTER 2021-08-16 09:36 | Outpatient (CLI) | payer MEDICARE, OTHER, SELFPAY ==
--- NOTE | 2021-08-16 09:51 | XR_ITS ---
WS: [id number] LEFT SHOULDER: 3 VIEW(S) TECHNIQUE: Internal and external rotation with Y view. HISTORY: BILATERAL SHOULDER PAIN COMPARISON: None available. No fracture or dislocation or soft tissue abnormality. Mild narrowing of the glenohumeral joint and AC joint. Very mild osteopenia. A few scattered calcifications noted within the aortic arch. 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 No destructive bone lesions.
--- NOTE | 2021-08-16 09:51 | XR_ITS ---
WS: [id number] RIGHT SHOULDER: 3 VIEW(S) TECHNIQUE: Internal and external rotation with Y view. HISTORY: BILATERAL SHOULDER PAIN COMPARISON: RIGHT humerus 07/03/2018 No fracture or dislocation or soft tissue abnormality. Mild narrowing of the AC joint. There is a 5 mm calcific density over the posterior lateral RIGHT hum eral head. Mild osteopenia. XR/XR shoulder RT min 2V* [id number] IMPRESSION: 1. 5 mm calcific density over the posterior lateral humeral head is probably r elated to calcific tendinitis of the rotator cuff. 2. Mild AC joint narrowing.
== END 2021-08-16 09:37 | disposition home or self-care (01) ==
PROVIDERS: PCP Family Medicine; Visit Provider Internal Medicine Hematology & Oncology
DX: M25.511 Pain in right shoulder (principal); M19.012 Primary osteoarthritis, left shoulder
CPT/HCPCS: 73030

== ENCOUNTER 2021-09-09 07:43 | Outpatient (CLI) | payer MEDICARE, OTHER, SELFPAY ==
[2021-09-09 08:26] LABS: Basophils # 0.1 10^3/uL (0.0-0.1); Basophils % 1.4 %; Eosinophils # 0.4 10^3/uL (0.0-0.8); Eosinophils % 5.5 %; Hematocrit 34.8 % (37.0-47.0); Hemoglobin 10.9 g/dL (11.5-15.3); Lymphocytes # 1.8 10^3/uL (0.8-4.8); Lymphocytes % 25.2 %; Mean Corpuscular HGB Conc 31.3 g/dL (30.0-36.0); Mean Corpuscular Hemoglobin 27.2 pg (28.0-34.0); Mean Corpuscular Volume 86.8 fl (81-99); Monocytes # 0.8 10^3/uL (0.2-0.9); Monocytes % 11.8 %; Neutrophils # 3.87 10^3/uL (1.8-7.7); Neutrophils % 55.8 %; Nucleated Red Blood Cells % 0 %; Platelet Count 233 10^3/cmm (130-400); Red Blood Count 4.01 10^6/uL (4.1-5.3); Red Cell Distribution Width 14.8 % (12.1-15.1); White Blood Count 6.9 10^3/uL (4.0-10.0)
[2021-09-09 08:47] LABS: Alanine Aminotransferase 9 U/L (0-33); Albumin Level 4.3 g/dL (3.5-5.2); Alkaline Phosphatase 186 IU/L (35-105); Anion Gap 19.8 (5-19); Aspartate Amino Transferase 19 U/L (0-32); Blood Urea Nitrogen 36 mg/dL (8-23); Calcium 8.8 mg/dL (8.5-10.5); Carbon Dioxide 22 mmol/L (22-29); Chloride 103 mmol/L (98-107); Ferritin 195 ng/mL (15-150); Globulin 2.5 g/dL (1.3-4.6); Glucose 93 mg/dL (65-115); Iron 33 ug/dL (37-145); Osmolality Calculated 298 mOsm/kg (285-295); Percent Saturation 14.1 % (20-50); Potassium 4.8 mmol/L (3.5-5.1); Sodium 140 mmol/L (136-145); Total Bilirubin 0.2 mg/dL (0.15-1.2); Total Iron Binding Capacity 233 mcg/dl; Total Protein 6.8 g/dL (6.6-8.7); Unsaturated Iron Binding 200 ug/dL (112-347)
[2021-09-09 09:23] LABS: Folate Level > 20.0 ng/mL (4.8-37.3)
--- NOTE | 2021-09-10 13:00 | ONC FU_ITS ---
Dr. aClderon follow up note Patient: Zaira Diaz Unit #: [id number]: 1940 Dicatated By: Josue Calderon M.D.Date of Visit:Sep 09, 2021 Onc Med Follow-up/Prog Note History of Present Illness: Ms. Zaira Diaz, is a 81-year-old female with a history of chronic diarrhea for which she underwent GI evaluation in 2018 at that time she underwent extensive work-up including colonoscopy by Dr. Anglin in [facility], as per patient she was told her colon was normal and next colonoscopy will be required in 5 years. Patient continues to have diarrhea and eventually underwent CT scan of abdomen pelvis on December 27, 2020 which showed marked soft tissue thickening with nodularity involving the distal colon/rectum and anus with extension into perineum and vagina. Large amount of edema soft tissue thickening which is new since 2016. Diffuse soft tissue anasarca. Bilateral lower lung field opacification. Soft tissue mass involving superior spleen with peripheral enhancement mass measuring 3.2 x 1.8 cm, new since 2016. Diffuse increased fluid within the colon is probably related to partial obstruction by increased soft tissue near perineum and rectum., As per patient, CT scan of abdomen pelvis showed abnormality in the lung bases, for which she underwent CT scan of chest on January 14, 2021 which showed right upper lobe lung mass measuring 4.3 cm and also a centimeter solid noncalcified nodule in the right middle lobe, a pleural-based 5.5 x 2.4 cm mass seen in the posterior basal segment of right lower lobe. A 0.93 cm soft tissue nodules seen in the left lower lobe of the lung. No mediastinal lymphadenopathy noted. No destructive bone lesion seen. Patient was referred to pulmonology and on January 26, [address] PET scan which showed hypermetabolic right upper lobe cavitary nodule, probably local metastatic disease in the right hilar node. Abutting the splenic surface of the left hemidiaphragm, there is a region of activity measuring 3.6 x 2.3 cm with SUV of 10.7, very likely malignant. Right loculated effusion or round atelectasis and left lower lobe nodules are FDG negative. 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 Past medical history significant for total abdominal hysterectomy bilateral salpingo-oophorectomy done on March 19, 2016 for benign appearing 10 cm mass originating from the left ovary. Bilateral total knee replacement Back surgery x2 for bulging disc Patient is a former smoker smoked for 20+ years and quit smoking at age 45 denies alcohol use Patient denies any night sweats, denies any recurrent fever, denies any melena or hematochezia, denies any hemoptysis or hematemesis, denies any jaundice, denies any new bony pains but off and on headaches. And significant weight loss e.g. 80 pounds over 1 year. Patient was referred to [facility] for evaluation and biopsy of left upper quadrant lesion, she was seen by Dr. Fabien Thomas on April 11 2021, at that time left upper quadrant/splenic lesion biopsy was planned, prior to that cardia clearance was required as per note, circulating tumor DNA panel was also done to identify actionable genomic alterations. Follow-up CT PET scan done on August 31, 2021 shows right upper lobe cavitary mass representing known malignancy is now subcentimeter in size and FDG negative consistent with complete response. Resolution of splenic metastatic disease. Improvement in right hilar uptake. Resolution of right basilar infiltrates., Patient did not take any treatment as being evaluated for splenic mass to rule out metastatic disease, patient was awaiting cardiac clearance for procedure at [facility] X-[facility] left shoulder shows mild AC joint and glenohumeral joint arthritis no destructive bone lesion and right shoulder shows a 5 mm calcific density over the posterior lateral humeral head is probably related to calcific tendinitis, mild AC joint narrowing Came for follow-up, patient denies any specific complaints, no hemoptysis no hematemesis her shoulder pain has improved significantly, and patient is gaining weight, denies any other new symptoms Medications: amLODIPine Besylate Tablet Oral PRN, Furosemide 2 Tablet (of 40 mg) Oral daily, Levothyroxine Sodium 1 Tablet (of 25 mcg) Oral daily, Omeprazole 1 Tablet (of 40 mg) Capsule Delayed Release Oral daily, oxyCODONE-Acetaminophen 1 - 2 Tablet (of 5-325 mg/5mL) Solution Oral q 4 to 6 hours PRN, Potassium Chloride ER 1 Capsule (of 10 meq) Capsule, controlled release Oral b.i.d. Allergies: Penicillins Review of Systems: Review of Systems is not available for this patient. Vital Signs: Performed on Sep 09, 2021 09:26 Height - 62.50 in Weight - 148.2 lbs (HIGH) BSA - 1.69 sq.m BMI - 26.67 Temperature - 98.0 F (LOW) Pulse - 73 /min Respiration - 18 /min BP - 145/72 mm(hg) (HIGH) O2 Sat - 97 % Pain - 8 Fatigue - 2 Performance Status: 0 - Fully active, able to carry on all predisease activities without restrictions. (ECOG) Physical Examination: ENMT - No mouth sores, no thrush, no jaundice, Respiratory - Lungs are clear to auscultation, Cardiovascular - Regular rate and rhythm of heart, Abdomen - Soft, bowel sounds present, Extremities - No visible edema. Lab/Imaging: Most recent lab results are not available for this patient. Impression: Adenocarcinoma per right upper lobe lung biopsy done on February 05, 2021, also showed metastatic adenocarcinoma involving right hilar lymph node, immunohistochemistry stains, PD-L1 status is pending CT PET scan done on January 26, 2021 showed 3.1 x 2.3 cm mass in right upper lobe SUV 4.3, in the superior right hilum lymph node with SUV of 2.7. Questionable activity is present in subcentimeter right paratracheal and subaortic lymph node. Abutting the spleen surface of left hemidiaphragm, there is region of activity measuring 3.6 x 2.3 cm with SUV of 10.7. Lobulated right pleural effusion or round atelectasis is FDG negative as well as posterior left lower lobe lung nodule is FDG negative. CT scan of chest done on January 14, 2021 showed 4.3 cm cavitary mass in the right upper lobe of the lung, 0.93 cm solid nodule in the left lower lobe lung. 5.5 x 2.4 cm mass in the posterior basal segment of the right lung and 1 cm nodule in the right middle lobe CT scan of abdomen pelvis done on December 27, 2020 showed marked soft tissue thickening with nodularity involving the distal colon/rectum/anus, large amount of edema soft tissue thickening involving perineum and vagina. Diffuse soft tissue anasarca. Bilateral lower lung field opacification. Soft tissue mass involving superior spleen with peripheral enhancement measuring 3.2 x 1.8 cm. Chronic diarrhea, underwent colonoscopy by Dr. Anglin in [place] in 2018 it was unremarkable Former smoker quit smoking at age 45 Plan: Discussed with patient regarding her labs white blood count 6.9 hemoglobin 10.9 hematocrit 34.8 platelets 223,000 CMP within normal limit except creatinine of 2.1 at her follow-up CT PET scan which showed no evidence of disease, that is without any treatment Clinically, patient is doing well except her chronic bilateral shoulder pain and x-ray of shoulder done recently showed arthritis, no destructive lesion, as per patient her shoulder pain is improving and, if there is a worsening, she might consider referral to orthopedics or rheumatology. As far as adenocarcinoma of the lung is concerned, her follow-up CT PET scan shows no evidence of disease e.g. complete resolution, her CT PET scan was reviewed with the patient now concern is whether patient got spontaneous remission which is less likely other possibility could be pathology, we will obtain pathology report from [facility] as patient was referred to [facility] for splenic mass biopsy and will also discuss with our on pathology regarding reviewing her initial transbronchial right lung mass and right hilar lymph node biopsy. In the meantime patient will return to clinic in 2 months with CBC CMP and CT scan of chest Signed By: Josue Calderon M.D. <<Signature on File>>
== END 2021-09-09 07:44 | disposition home or self-care (01) ==
LOC: ONCMED 07:46
PROVIDERS: PCP Family Medicine; Visit Provider Internal Medicine Hematology & Oncology
DX: C34.11 Malignant neoplasm of upper lobe, right bronchus or lung (principal); C77.1 Secondary and unspecified malignant neoplasm of intrathoracic lymph nodes; R16.1 Splenomegaly, not elsewhere classified; K52.9 Noninfective gastroenteritis and colitis, unspecified; Z79.899 Other long term (current) drug therapy; Z90.710 Acquired absence of both cervix and uterus; Z96.653 Presence of artificial knee joint, bilateral; Z87.891 Personal history of nicotine dependence
CPT/HCPCS: 36415; 80053; 82728; 82746; 83540; 83550; 85025; 99214

== ENCOUNTER 2021-09-23 13:55 | Outpatient (CLI) | payer MEDICARE, OTHER, SELFPAY ==
--- NOTE | 2021-09-23 14:01 | CT_ITS ---
WS: [id number] CT CHEST AND ABDOMEN TECHNIQUE: Noncontrast CT of the chest and abdomen with coronal and sagittal reformatted images.. CLINICAL INFORMATION: MALIGNANT NEOPLASM OF UPPER LOBE, RIGHT BRONCHUS OR LUNG COMPARISON: PET CT August 31, [address] chest 01/14/21 DLP: 1388.[address] scans at [facility] use at least one of these dose optimization techniques: automated e xposure control; mA and/or kV adjustment per patient size (includes targeted exams where dose is matc hed to clinical indication); or iterative reconstruction. CT CHEST: Moderate chronic emphysematous changes. No acute pulmonary infiltrates. No focal pneumonia or pleural fluid. Previously described cavitary mass in right upper lobe seen on the prior CT December 2020 has es sentially resolved with a small amount of fibrosis in the right upper lobe. No evidence of recurrent or progressive disease. No mediastinal or hilar lymphadenopathy. Aortic calcification. Coronary calcification. Tiny esophageal hiatal hernia. CT ABDOMEN: Normal noncontrast liver. Cholecystectomy clips. Adrenal glands are normal. Vascular calcification. N oncontrast pancreas is normal. Normal caliber abdominal aorta. Tortuous infrarenal abdominal aorta wi th calcification. Dorsal spinal stimulator. Chronic compression deformities in the mid thoracic spine and upper lumbar spine are stable. Disc space narrowing worse at L3-L5. CT/CT chest abdomen wo con IMPRESSION: 1. No evidence of recurrent, progressive, or metastatic disease. 2. Comparison described cavitary mass in the right upper lobe has essentially resolved with a small amount of residual fibrosis. 3. No mediastinal or hilar lymphadenopathy. 4. No evidence of metastatic disease in the abdomen.
== END 2021-09-23 13:56 | disposition home or self-care (01) ==
PROVIDERS: PCP Family Medicine; Visit Provider Internal Medicine Hematology & Oncology
DX: C34.11 Malignant neoplasm of upper lobe, right bronchus or lung (principal)
CPT/HCPCS: 71250; 74150

== ENCOUNTER → 2021-10-16 16:07 | Outpatient (BNVA) | payer MEDICARE, OTHER, SELFPAY | PROVIDERS: PCP Family Medicine; Visit Provider Internal Medicine Nephrology | DX: N18.4 Chronic kidney disease, stage 4 (severe) (principal) | CPT/HCPCS: 80069; 81003; 82043; 87086 ==

== ENCOUNTER → 2021-11-07 11:55 | Outpatient (BNVA) | payer MEDICARE, OTHER, SELFPAY | PROVIDERS: PCP Family Medicine; Visit Provider Nurse Practitioner Family | DX: E03.9 Hypothyroidism, unspecified (principal); E55.9 Vitamin D deficiency, unspecified; I10 Essential (primary) hypertension; R60.9 Edema, unspecified; N18.9 Chronic kidney disease, unspecified; E78.2 Mixed hyperlipidemia | CPT/HCPCS: 80053; 80061; 82306; 82607; 83735; 84439; 84443; 85025 ==

== ENCOUNTER 2021-11-12 12:43 | Outpatient (CLI) | payer MEDICARE, OTHER, SELFPAY ==
[2021-11-12 13:07] LABS: Basophils # 0.1 10^3/uL (0.0-0.1); Basophils % 1.3 %; Eosinophils # 0.5 10^3/uL (0.0-0.8); Eosinophils % 6.8 %; Hematocrit 40.9 % (37.0-47.0); Hemoglobin 12.7 g/dL (11.5-15.3); Lymphocytes # 2.3 10^3/uL (0.8-4.8); Lymphocytes % 32.9 %; Mean Corpuscular HGB Conc 31.1 g/dL (30.0-36.0); Mean Corpuscular Hemoglobin 27.5 pg (28.0-34.0); Mean Corpuscular Volume 88.5 fl (81-99); Mean Platelet Volume 10.1 fL (7.4-10.4); Monocytes # 0.5 10^3/uL (0.2-0.9); Monocytes % 7.4 %; Neutrophils # 3.56 10^3/uL (1.8-7.7); Neutrophils % 51.5 %; Nucleated Red Blood Cells % 0 %; Platelet Count 273 10^3/cmm (130-400); Red Blood Count 4.62 10^6/uL (4.1-5.3); Red Cell Distribution Width 14.8 % (12.1-15.1); White Blood Count 6.9 10^3/uL (4.0-10.0)
[2021-11-12 13:29] LABS: Alanine Aminotransferase 10 U/L (0-33); Albumin Level 4.7 g/dL (3.5-5.2); Alkaline Phosphatase 188 IU/L (35-105); Anion Gap 20.8 (5-19); Aspartate Amino Transferase 17 U/L (0-32); Blood Urea Nitrogen 32 mg/dL (8-23); Carbon Dioxide 23 mmol/L (22-29); Chloride 103 mmol/L (98-107); Globulin 2.8 g/dL (1.3-4.6); Glucose 98 mg/dL (65-115); Osmolality Calculated 301 mOsm/kg (285-295); Potassium 4.8 mmol/L (3.5-5.1); Sodium 142 mmol/L (136-145); Total Bilirubin 0.2 mg/dL (0.15-1.2); Total Protein 7.5 g/dL (6.6-8.7)
--- NOTE | 2021-11-13 11:35 | ONC FU_ITS ---
Dr. Calderon follow up note Patient: Zaira Diaz Unit #: [id number]: [id number] Dicatated By: Josue Calderon M.D.Date of Visit:Nov 12, 2021 Onc Med Follow-up/Prog Note History of Present Illness: Ms. Zaira Diaz, is a 81-year-old female with a history of chronic diarrhea for which she underwent GI evaluation in 2018 at that time she underwent extensive work-up including colonoscopy by Dr. Anglin in [facility], as per patient she was told her colon was normal and next colonoscopy will be required in 5 years. Patient continues to have diarrhea and eventually underwent CT scan of abdomen pelvis on December 27, 2020 which showed marked soft tissue thickening with nodularity involving the distal colon/rectum and anus with extension into perineum and vagina. Large amount of edema soft tissue thickening which is new since 2016. Diffuse soft tissue anasarca. Bilateral lower lung field opacification. Soft tissue mass involving superior spleen with peripheral enhancement mass measuring 3.2 x 1.8 cm, new since 2016. Diffuse increased fluid within the colon is probably related to partial obstruction by increased soft tissue near perineum and rectum., As per patient, CT scan of abdomen pelvis showed abnormality in the lung bases, for which she underwent CT scan of chest on January 14, 2021 which showed right upper lobe lung mass measuring 4.3 cm and also a centimeter solid noncalcified nodule in the right middle lobe, a pleural-based 5.5 x 2.4 cm mass seen in the posterior basal segment of right lower lobe. A 0.93 cm soft tissue nodules seen in the left lower lobe of the lung. No mediastinal lymphadenopathy noted. No destructive bone lesion seen. Patient was referred to pulmonology and on January 26, [address] PET scan which showed hypermetabolic right upper lobe cavitary nodule, probably local metastatic disease in the right hilar node. Abutting the splenic surface of the left hemidiaphragm, there is a region of activity measuring 3.6 x 2.3 cm with SUV of 10.7, very likely malignant. Right loculated effusion or round atelectasis and left lower lobe nodules are FDG negative. 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 Past medical history significant for total abdominal hysterectomy bilateral salpingo-oophorectomy done on March 19, 2016 for benign appearing 10 cm mass originating from the left ovary. Bilateral total knee replacement Back surgery x2 for bulging disc Patient is a former smoker smoked for 20+ years and quit smoking at age 45 denies alcohol use Patient denies any night sweats, denies any recurrent fever, denies any melena or hematochezia, denies any hemoptysis or hematemesis, denies any jaundice, denies any new bony pains but off and on headaches. And significant weight loss e.g. 80 pounds over 1 year. Patient was referred to [facility] for evaluation and biopsy of left upper quadrant lesion, she was seen by Dr. Fabien Thomas on April 11 2021, at that time left upper quadrant/splenic lesion biopsy was planned, prior to that cardia clearance was required as per note, circulating tumor DNA panel was also done to identify actionable genomic alterations. Follow-up CT PET scan done on August 31, 2021 shows right upper lobe cavitary mass representing known malignancy is now subcentimeter in size and FDG negative consistent with complete response. Resolution of splenic metastatic disease. Improvement in right hilar uptake. Resolution of right basilar infiltrates., Patient did not take any treatment as being evaluated for splenic mass to rule out metastatic disease, patient was awaiting cardiac clearance for procedure at [facility] X-ray left shoulder shows mild AC joint and glenohumeral joint arthritis no destructive bone lesion and right shoulder shows a 5 mm calcific density over the posterior lateral humeral head is probably related to calcific tendinitis, mild AC joint narrowing repeat CT scan of the chest done on September 23, 2021 showed no evidence of recurrence, progressive or metastatic disease. When compared with CT PET scan done on August 31, [address] scan of chest done on January 14, 2021, previously described cavitary mass in the right upper lobe has essentially resolved with a small amount of residual fibrosis. Came for follow-up, denies any specific complaints, no fever chills, no nausea or vomiting, no diarrhea constipation, no melena hematochezia, no hemoptysis or hematemesis, no new bony pains, no jaundice, no shortness of breath or chest pain, no palpitation, appetite is good. Medications: Acetaminophen 8 Hour 2 Tablet (of 650 mg) Tablet, controlled release Oral b.i.d., amLODIPine Besylate Tablet Oral PRN, AZO Cranberry 2 Tablet (of 500 mg) Oral daily, Biotin (59458 mcg) Tablet Oral daily, Daily Vitamin Tablet Oral daily, Furosemide 2 Tablet (of 40 mg) Oral daily, Levothyroxine Sodium 1 Tablet (of 25 mcg) Oral daily, Magnesium (400 mg) Tablet Oral daily, Omeprazole 1 Tablet (of 40 mg) Capsule Delayed Release Oral daily PRN, Turmeric Curcumin (500 mg) Capsule Oral daily, Vitamin C (1000 mg) Tablet Oral daily, Zinc (50 mg) Tablet Oral daily Allergies: Penicillins Review of Systems: Review of Systems is not available for this patient. Vital Signs: Performed on Nov 12, 2021 14:20 Height - 62.50 in Weight - 148.8 lbs (HIGH) BSA - 1.70 sq.m BMI - 26.78 Temperature - 97.2 F (LOW) Pulse - 74 /min Respiration - 16 /min BP - 157/71 mm(hg) (HIGH) O2 Sat - 96 % Pain - 0 Fatigue - 7 Performance Status: 0 - Fully active, able to carry on all predisease activities without restrictions. (ECOG) Physical Examination: ENMT - No mouth sores no thrush, no jaundice, Respiratory - Lungs are clear to auscultation, Cardiovascular - Regular rate and rhythm of heart, Abdomen - Soft, bowel sounds present, Extremities - No visible edema. Lab/Imaging: Most recent lab results are not available for this patient. Impression: History of cavitary mass in the right upper lobe, was diagnosed with Adenocarcinoma per right upper lobe lung biopsy done on February 05, 2021, also showed metastatic adenocarcinoma involving right hilar lymph node, immunohistochemistry stains, But pathology was reviewed at [facility] confirmed no evidence of malignancy Repeat CT PET scan done on August 31, 2021 showed resolution of right upper lobe mass/hilar lymphadenopathy and repeat CT scan of chest done on September 23, 2021 showed no evidence of recurrence, progressive, metastatic disease and cavitary mass in the right upper lobe has essentially resolved no mediastinal or hilar lymphadenopathy. CT PET scan done on January 26, 2021 showed 3.1 x 2.3 cm mass in right upper lobe SUV 4.3, in the superior right hilum lymph node with SUV of 2.7. Questionable activity is present in subcentimeter right paratracheal and subaortic lymph node. Abutting the spleen surface of left hemidiaphragm, there is region of activity measuring 3.6 x 2.3 cm with SUV of 10.7. Lobulated right pleural effusion or round atelectasis is FDG negative as well as posterior left lower lobe lung nodule is FDG negative. CT scan of chest done on January 14, 2021 showed 4.3 cm cavitary mass in the right upper lobe of the lung, 0.93 cm solid nodule in the left lower lobe lung. 5.5 x 2.4 cm mass in the posterior basal segment of the right lung and 1 cm nodule in the right middle lobe CT scan of abdomen pelvis done on December 27, 2020 showed marked soft tissue thickening with nodularity involving the distal colon/rectum/anus, large amount of edema soft tissue thickening involving perineum and vagina. Diffuse soft tissue anasarca. Bilateral lower lung field opacification. Soft tissue mass involving superior spleen with peripheral enhancement measuring 3.2 x 1.8 cm. Chronic diarrhea, underwent colonoscopy by Dr. Anglin in [place] in 2018 it was unremarkable Former smoker quit smoking at age 45 Plan: Discussed with patient regarding her labs white blood count 6.9 hemoglobin 12.7 g compared to 10.9 g previously hematocrit of 40.9 platelets 273,000 CMP within normal limits Clinically, patient doing well with no new signs symptoms history of disease progression, repeat CT scan of chest done recently showed no evidence of recurrent or progressive or metastatic disease and the right upper lobe mass has essentially resolved with small amount of residual fibrosis, no mediastinal or hilar lymphadenopathy. As mentioned earlier, patient was diagnosed with adenocarcinoma of involving right upper lung but when pathology was reviewed at [facility], the diagnosis was changed to inflammatory lesion rather than malignant, her CT PET scan was repeated in August 2021 showed no evidence of disease, CT scan of chest was repeated in September 2021 showed no evidence of disease. At this point, no further work-up rather observation. As far as anemia is concerned, her follow-up lab work-up shows resolution. At this point, we will see her on as needed basis and she will follow with her primary care. Signed By: Josue Calderon M.D. <<Signature on File>>
== END 2021-11-12 12:44 | disposition home or self-care (01) ==
LOC: ONCMED 12:45
PROVIDERS: PCP Family Medicine; Visit Provider Internal Medicine Hematology & Oncology
DX: Z08 Encounter for follow-up examination after completed treatment for malignant neoplasm (principal); Z85.118 Personal history of other malignant neoplasm of bronchus and lung; K52.9 Noninfective gastroenteritis and colitis, unspecified; J84.10 Pulmonary fibrosis, unspecified; Z87.891 Personal history of nicotine dependence
CPT/HCPCS: 36415; 80053; 85025; 99214

== ENCOUNTER 2021-12-12 09:48 | Outpatient (CLI) | payer MEDICARE, OTHER, SELFPAY ==
--- NOTE | 2021-12-12 10:00 | US_ITS ---
WS: [id number] ULTRASOUND RENAL TECHNIQUE: Ultrasound examination of both kidneys. CLINICAL INFORMATION: CHRONIC KIDNEY DISEASE STAGE 4 COMPARISON: None. FINDINGS: RIGHT: Right kidney is normal in size and appearance. Echogenicity: Normal. Cortical thickness: 1.1 cm; Normal. Hydronephrosis: None. Perinephric fluid: None. Right kidney measures: 7.7 cm x 4.1 cm x 3.7 cm. LEFT: Left kidney is normal in size and appearance. Echogenicity: Normal. Cortical thickness: 1.2 cm; Normal. Hydronephrosis: None. Perinephric fluid: None. Left kidney measures: 8.2 cm x 4.1 cm x 3.8 cm. Normal visualized aorta. US/US renal BI* [id number] IMPRESSION: Normal renal ultrasound
== END 2021-12-12 09:49 | disposition home or self-care (01) ==
LOC: RAD 09:52
PROVIDERS: PCP Family Medicine; Visit Provider Internal Medicine Nephrology
DX: N18.4 Chronic kidney disease, stage 4 (severe) (principal)
CPT/HCPCS: 76770

== ENCOUNTER → 2022-01-14 10:17 | Outpatient (BNVA) | payer MEDICARE, OTHER, SELFPAY | PROVIDERS: PCP Family Medicine; Visit Provider Internal Medicine Nephrology | DX: N18.9 Chronic kidney disease, unspecified (principal) | CPT/HCPCS: 80053; 80069; 82043; 82310; 83970; 85025 ==

== ENCOUNTER → 2022-04-02 09:58 | Outpatient (BNVA) | payer MEDICARE, OTHER, SELFPAY | PROVIDERS: PCP Family Medicine; Visit Provider Family Medicine | DX: N18.9 Chronic kidney disease, unspecified (principal); E03.9 Hypothyroidism, unspecified; E78.2 Mixed hyperlipidemia; I10 Essential (primary) hypertension | CPT/HCPCS: 80053; 80061; 84443; 85025 ==

== ENCOUNTER → 2022-05-27 15:46 | Outpatient (BNVA) | payer MEDICARE, OTHER, SELFPAY | PROVIDERS: PCP Family Medicine; Visit Provider Internal Medicine Nephrology | DX: N18.4 Chronic kidney disease, stage 4 (severe) (principal) | CPT/HCPCS: 80069; 82043; 82310; 82542; 83970; 85025 ==

== ENCOUNTER → 2022-08-06 16:25 | Outpatient (BNVA) | payer MEDICARE, OTHER, SELFPAY | PROVIDERS: PCP Family Medicine; Visit Provider Family Medicine | DX: E55.9 Vitamin D deficiency, unspecified (principal); M79.603 Pain in arm, unspecified; M79.606 Pain in leg, unspecified; D69.6 Thrombocytopenia, unspecified; I10 Essential (primary) hypertension | CPT/HCPCS: 80053; 82306; 82607; 83540; 83735; 84443; 84550; 85025 ==

== ENCOUNTER → 2022-09-16 16:36 | Outpatient (BNVA) | payer MEDICARE, OTHER, SELFPAY | PROVIDERS: PCP Family Medicine; Visit Provider Nurse Practitioner Family | DX: M10.9 Gout, unspecified (principal); J20.9 Acute bronchitis, unspecified | CPT/HCPCS: 80053; 84550; 85025 ==

== ENCOUNTER → 2022-12-03 10:28 | Outpatient (BNVA) | payer MEDICARE, OTHER, SELFPAY | PROVIDERS: PCP Family Medicine; Visit Provider Registered Nurse | DX: N18.4 Chronic kidney disease, stage 4 (severe) (principal); E55.9 Vitamin D deficiency, unspecified; M10.9 Gout, unspecified | CPT/HCPCS: 80069; 82043; 82306; 82310; 83970; 84550; 85025 ==

== ENCOUNTER → 2022-12-11 12:40 | Outpatient (BNVA) | payer MEDICARE, OTHER, SELFPAY | PROVIDERS: PCP Family Medicine; Visit Provider Internal Medicine | DX: I10 Essential (primary) hypertension (principal); E78.2 Mixed hyperlipidemia; R60.9 Edema, unspecified | CPT/HCPCS: 99214 ==

== ENCOUNTER → 2023-01-05 10:00 | Outpatient (BNVA) | payer MEDICARE, OTHER, SELFPAY | PROVIDERS: PCP Family Medicine; Visit Provider Family Medicine | DX: M10.9 Gout, unspecified (principal); E03.9 Hypothyroidism, unspecified; E78.5 Hyperlipidemia, unspecified; N18.9 Chronic kidney disease, unspecified; E87.6 Hypokalemia; E55.9 Vitamin D deficiency, unspecified; R53.82 Chronic fatigue, unspecified; R91.8 Other nonspecific abnormal finding of lung field | CPT/HCPCS: 80053; 80061; 82306; 84443; 84550; 85025 ==

== ENCOUNTER → 2023-01-23 12:30 | Outpatient (BNVA) | payer MEDICARE, OTHER, SELFPAY | PROVIDERS: PCP Family Medicine; Visit Provider Family Medicine | DX: M25.511 Pain in right shoulder (principal) | CPT/HCPCS: 73030 ==

== ENCOUNTER → 2023-04-10 09:19 | Outpatient (BNVA) | payer MEDICARE, OTHER, SELFPAY | PROVIDERS: PCP Family Medicine; Referring Provider Family Medicine; Visit Provider Student in an Organized Health Care Education/Training Program | DX: M75.101 Unspecified rotator cuff tear or rupture of right shoulder, not specified as traumatic (principal); M19.011 Primary osteoarthritis, right shoulder | CPT/HCPCS: 20610; 99204; J3301 ==

== ENCOUNTER 2023-04-22 06:00 | Outpatient (RCR) | payer MEDICARE, OTHER, SELFPAY | END 2023-05-21 23:59 | disposition home or self-care (01) | LOC: TPT 06:00 | PROVIDERS: Visit Provider Student in an Organized Health Care Education/Training Program | DX: M19.011 Primary osteoarthritis, right shoulder (principal) | CPT/HCPCS: 97110; 97162 ==

== ENCOUNTER 2023-05-14 09:46 | Outpatient (CLI) | payer MEDICARE, OTHER, SELFPAY ==
--- NOTE | 2023-05-14 09:54 | XR_ITS ---
WS: [id number] EXAMINATION: XR lumbar spine 2-3V* [id number] L-SPINE : 3 views REASON FOR EXAM: R52 - Pain, unspecified COMPARISON: None available. ORDER DATE: 05/14/2023 10:15 AM FINDINGS/impression:: There is a spinal stimulator in place. There is been prior laminectomy change at L2 and L3. There is approximately 15 degree scoliotic curvature convex to the right in the mid lumbar region. Battery pac k superimposes the posterior aspect of L3 and L4 on the lateral projection. There is marked narrowing of these associated disc spaces including L5-S1 which demonstrates vacuum disc change. There is supe rior endplate compression deformity of L1. This is of indeterminate age since there are no previous s tudies for comparison. Moderate atherosclerotic aortic and splenic artery calcifications are present. Prior cholecystectomy clips noted
--- NOTE | 2023-05-14 09:54 | XR_ITS ---
WS: [id number] EXAMINATION: XR hip RT 2-3V wo/w pel* [id number] REASON FOR EXAM: R52 - Pain, unspecified COMPARISON: None available. ORDER DATE: 05/14/2023 10:15 AM TECHNIQUE: Frontal internal/external rotation views of the right hip were obtained. X-RAY FINDINGS: There are no fractures or dislocations. Moderate hip joint space narrowing with osteoarthritis. IMPRESSION: 1. No fractures or dislocations of the right hip. 2. Normal motion with internal/external rotation.
== END 2023-05-14 09:47 | disposition home or self-care (01) ==
PROVIDERS: PCP Family Medicine; Visit Provider Nurse Practitioner Family
DX: M25.551 Pain in right hip (principal); M54.50 Low back pain, unspecified; Z96.82 Presence of neurostimulator; Z98.890 Other specified postprocedural states; I70.0 Atherosclerosis of aorta; I70.8 Atherosclerosis of other arteries; Z90.49 Acquired absence of other specified parts of digestive tract
CPT/HCPCS: 72100; 73502

== ENCOUNTER → 2023-05-21 15:38 | Outpatient (BNVA) | payer MEDICARE, OTHER, SELFPAY | PROVIDERS: PCP Family Medicine; Visit Provider Orthopaedic Surgery | DX: M48.062 Spinal stenosis, lumbar region with neurogenic claudication; Z96.82 Presence of neurostimulator; Z96.659 Presence of unspecified artificial knee joint | CPT/HCPCS: 99204 ==

== ENCOUNTER 2023-06-08 12:14 | Outpatient (CLI) | payer MEDICARE, OTHER, SELFPAY ==
--- NOTE | 2023-06-08 13:00 | IR_ITS ---
WS: [id number] LUMBAR MYELOGRAM HISTORY: Lumbar pain COMPARISON: None available. FLUOROSCOPY TIME: 20 seconds # of spot films: 1 Procedure, risks and complications were explained to the patient. Risks including bleeding, infection , headaches, allergic reaction and seizures. Consent has been obtained. With the patient in prone position the skin over the lumbar region is cleansed with ChloraPrep and an esthetized with lidocaine. 22-gauge spinal needle is inserted into the subcutaneous soft tissue of th e lumbar spine. Before achieving access into the thecal sac patient began complaining of leg discomfo rt and heaviness. Lumbar myelogram was terminated at that time. No contrast was injected. Patient compa l proceed to noncontrast lumbar spine CT. IMPRESSION: 1. Lumbar myelogram was terminated early as patient began complaining of leg discomfort and heaviness . 2. Noncontrast CT lumbar spine will be performed.
--- NOTE | 2023-06-08 13:00 | CT_ITS ---
WS: [id number] CT LUMBAR SPINE, noncontrast. HISTORY: Lumbar pain TECHNIQUE: Contiguous 2.0 mm axial imaging are performed. Sagittal and coronal reformats are submitte d and reviewed. All CT scans at [facility] use at least one of these dose optimization techni ques: automated exposure control; mA and/or kV adjustment per patient size (includes targeted exams w here dose is matched to clinical indication); or iterative reconstruction. IV contrast: None DLP: 398.09 COMPARISON: None available. Noncontrast evaluation of the lumbar spine is performed. Prior to achieving access into the thecal sa c the patient began complaining of bilateral leg heaviness and weakness while in a prone position. Mike rivera also described a recent fall. As patient's symptoms did not improve I elected to terminate the myelogram portion and continue with noncontrast CT. Rotary scoliosis of the lumbar spine. There is asymmetric disc space narrowing. There is bone upon ana m ne at the L4-5 level and near bone upon bone at L3-4. Mild concave deformity superior endplate of L1 is chronic. No new acute fracture. T12-L1: Mild annular disc bulging. Facet joint arthritis. Mild central and moderate LEFT foraminal st enosis. L1-2: Diffuse annular disc bulging with moderate ligamentum flavum and facet arthritis. No significan t stenosis. L2-3: Marked asymmetric disc bulging. Disc bulging encroaching upon the ventral thecal sac and subart icular recesses. Marked bilateral facet joint arthritis and narrowing of the facet joints. Posterior laminectomy defect. Mild central with bilateral foraminal stenosis. L3-4: Mild osteophytic ridging and disc bulging. Ligamentum flavum and facet arthritis. Partial fusio n across the RIGHT facet joint. Mild central and bilateral foraminal stenosis. L4-5: Marked osteophytic ridging. Ligamentum flavum and facet arthritis. LEFT hemilaminectomy defect. Severe central and LEFT foraminal stenosis. Moderate RIGHT foraminal stenosis. L5-S1: Osteophytic ridging. Complete effacement of fat in the RIGHT foramen. There is increased soft tissue consistent with a disc protrusion. Severe bilateral foraminal stenosis. Stenosis due to combin ation of disc protrusions, facet and osteophytosis. RIGHT hemilaminectomy defect. Dorsal column stimulator. Heavy calcification in the splenic artery. Prior cholecystectomy. IMPRESSION: 1. Severe rotary scoliosis lumbar spine with asymmetric disc space narrowing. 2. Bone upon bone at L4-5 and near bone upon bone at L3-4. 3. L5-S1: Severe bilateral foraminal stenosis. Increased soft tissue in the RIGHT foramen is probably a disc protrusion contacting the RIGHT L5 and S1 nerve roots. 4. L4-5 severe central LEFT foraminal stenosis and moderate RIGHT foraminal stenosis. 5. L3-4 and L2-3: Mild central and bilateral foraminal stenosis. 6. T12-L1: Mild central with moderate LEFT foraminal stenosis. 7. Chronic L1 compression fracture. No acute fractures identified. 8. Multilevel facet joint arthritis. Note: This examination was initially ordered as a myelogram. Patient became complaining of leg heavin ess and numbness and acute change in her legs during the early lumbar myelogram portion of this exami nation. No access into the thecal sac. Patient also described a fall earlier the same day. Instead of proceeding with the myelogram noncontrast lumbar spine CT was performed.
== END 2023-06-08 12:15 | disposition home or self-care (01) ==
PROVIDERS: PCP Family Medicine; Visit Provider Orthopaedic Surgery
DX: M41.86 Other forms of scoliosis, lumbar region (principal); M48.07 Spinal stenosis, lumbosacral region; M48.05 Spinal stenosis, thoracolumbar region; M47.817 Spondylosis without myelopathy or radiculopathy, lumbosacral region; M47.815 Spondylosis without myelopathy or radiculopathy, thoracolumbar region; M48.56XA Collapsed vertebra, not elsewhere classified, lumbar region, initial encounter for fracture; Z53.09 Procedure and treatment not carried out because of other contraindication
CPT/HCPCS: 62304; 72131

== ENCOUNTER → 2023-06-09 13:22 | Outpatient (BNVA) | payer MEDICARE, OTHER, SELFPAY | PROVIDERS: PCP Family Medicine; Visit Provider Orthopaedic Surgery | DX: M48.062 Spinal stenosis, lumbar region with neurogenic claudication (principal); M16.11 Unilateral primary osteoarthritis, right hip | CPT/HCPCS: 72100; 99214 ==

== ENCOUNTER → 2023-07-01 14:04 | Outpatient (BNVA) | payer MEDICARE, OTHER, SELFPAY | PROVIDERS: PCP Family Medicine; Referring Provider Orthopaedic Surgery; Visit Provider Anesthesiology Pain Medicine | DX: M48.062 Spinal stenosis, lumbar region with neurogenic claudication (principal); M47.816 Spondylosis without myelopathy or radiculopathy, lumbar region; M51.16 Intervertebral disc disorders with radiculopathy, lumbar region | CPT/HCPCS: 99204 ==

== ENCOUNTER → 2023-07-15 14:41 | Outpatient (BNVA) | payer MEDICARE, OTHER, SELFPAY | PROVIDERS: PCP Family Medicine; Visit Provider Anesthesiology Pain Medicine | DX: M51.16 Intervertebral disc disorders with radiculopathy, lumbar region (principal); M48.062 Spinal stenosis, lumbar region with neurogenic claudication | CPT/HCPCS: 64483; 64484; J1100; Q9967 ==

== ENCOUNTER → 2023-07-21 15:41 | Outpatient (BNVA) | payer MEDICARE, OTHER, SELFPAY | PROVIDERS: PCP Family Medicine; Visit Provider Nurse Practitioner Family | DX: M51.16 Intervertebral disc disorders with radiculopathy, lumbar region (principal); E78.2 Mixed hyperlipidemia; I10 Essential (primary) hypertension; M16.11 Unilateral primary osteoarthritis, right hip; N18.32 Chronic kidney disease, stage 3b | CPT/HCPCS: 80053; 80061; 84443 ==

== ENCOUNTER → 2023-07-30 14:37 | Outpatient (BNVA) | payer MEDICARE, OTHER, SELFPAY | PROVIDERS: PCP Family Medicine; Visit Provider Orthopaedic Surgery | DX: M48.062 Spinal stenosis, lumbar region with neurogenic claudication; M16.9 Osteoarthritis of hip, unspecified | CPT/HCPCS: 99214 ==

== ENCOUNTER → 2023-09-02 10:15 | Outpatient (BNVA) | payer MEDICARE, OTHER, SELFPAY | PROVIDERS: PCP Family Medicine; Referring Provider Orthopaedic Surgery; Visit Provider Specialist | DX: M16.11 Unilateral primary osteoarthritis, right hip (principal) | CPT/HCPCS: 73502; 99214 ==

== ENCOUNTER → 2023-09-10 12:36 | Outpatient (BNVA) | payer MEDICARE, OTHER, SELFPAY | PROVIDERS: PCP Family Medicine; Visit Provider Internal Medicine | DX: E78.2 Mixed hyperlipidemia (principal); R60.9 Edema, unspecified; Z87.891 Personal history of nicotine dependence; I12.9 Hypertensive chronic kidney disease with stage 1 through stage 4 chronic kidney disease, or unspecified chronic kidney disease; N18.30 Chronic kidney disease, stage 3 unspecified; Z79.82 Long term (current) use of aspirin | CPT/HCPCS: 99214 ==

== ENCOUNTER → 2023-12-07 10:34 | Outpatient (BNVA) | payer MEDICARE, OTHER, SELFPAY | PROVIDERS: PCP Family Medicine; Visit Provider Specialist | DX: M16.11 Unilateral primary osteoarthritis, right hip | CPT/HCPCS: 73502; 99214 ==

== ENCOUNTER → 2024-01-04 12:32 | Outpatient (BNVA) | payer MEDICARE, OTHER, SELFPAY | PROVIDERS: PCP Family Medicine; Visit Provider Family Medicine | DX: Z01.818 Encounter for other preprocedural examination (principal) | CPT/HCPCS: 80053; 81003; 85025; 93005 ==

== ENCOUNTER 2024-01-06 14:01 | Observation (INO) | payer MEDICARE, OTHER, SELFPAY ==
[2024-01-06] VITALS (21 sets, daily range): BP systolic 138–201; BP diastolic 64–88; PULSE 58–83; RESP 15–20; TEMP 35–36.9; O2SAT 91–99; BMI 25.7
--- NOTE | 2024-01-06 10:21 | ANES.PREANE2 ---
Pre-Anesthetic Assessment Height/Weight: Height 1.65 m Weight 70.307 kg Temp Pulse Resp BP Pulse Ox O2 Del Method 97.4 F L 83 17 201/88 98 Room Air 01/06/24 10:01/06/24 10:01/06/24 10:01/06/24 10:01/06/24 10:01/06/24 10:01 Operation Date: 01/06/24 11:25 Proposed Procedures p Total Hip Arthroplasty(Right) - Taya Mueller MD Social No alcohol and No tobacco Airway Submandibular: within normal limits Cervical ROM: within normal limits Mallampati: Class I Pulmonary None reported CV/HEM Hypertension Chronic Renal Insufficiency GI None reported Metabolic None reported Musc/skel Lower Back Pain and Weakness patient complains of right foot drop which causes her to stumble . Anesthetic Plan ASA status: 3 Anesthesia: General Risk of > 500 ml blood loss (7ml/kg in children): Yes, adequate IV access and fluids planned Medications/Allergies Home Medications Medication Instructions Recorded Confirmed Last Taken Type multivitamin (Daily Multi-Vitamin 1 tab PO QAM 10/19/19 01/05/24 01/05/24 History tablet) acetaminophen 325 mg tablet 650 mg (2 x 325 mg) PO BID PRN 11/19/20 01/05/24 02/03/21 Rx (Tylenol) Back Pain #180 tabs nitroglycerin 0.4 mg sublingual 0.4 mg sublingual Q5M PRN chest 07/04/21 01/05/24 Unknown Rx tablet (Nitrostat) pain #50 tabs ascorbate calcium-bioflavonoid ER tab PO DAILY 08/12/21 12/07/23 01/05/24 History 1,000 mg-200 mg tab,extended release cranberry fruit concentrate 250 mg 500 mg PO DAILY 11/07/21 01/05/24 01/05/24 History chewable tablet (Azo Cranberry) aspirin 81 mg tablet,delayed 81 mg PO DAILY #90 tabs 03/13/22 01/05/24 01/01/24 Rx release (Adult Aspirin Regimen) coenzyme Q10 100 mg capsule (Co 100 mg PO DAILY #90 caps 04/08/22 01/05/24 01/05/24 Rx Q-10) immune 24hr vitamin C PO 12/11/22 12/07/23 01/05/24 History furosemide 40 mg tablet (Lasix) 40 mg PO QAM #90 tabs 03/10/23 01/05/24 01/05/24 Rx vitamins A,C,C-dlnf-sjrtvw 4,296 1 cap PO DAILY 04/10/23 01/05/24 01/05/24 History mcg-226 mg-90 mg capsule (ICaps AREDS) amlodipine 10 mg tablet 10 mg .Route DAILY #90 tabs 08/11/23 01/05/24 01/05/24 Rx ezetimibe 10 mg tablet (Zetia) 10 mg PO DAILY #90 tabs 08/11/23 01/05/24 01/05/24 Rx levothyroxine 25 mcg tablet See Rx Instructions .Route 08/11/23 01/05/24 01/05/24 Rx .COMPLEX #90 tabs carisoprodol 350 mg tablet 350 mg PO .HS PRN muscle pain #30 12/08/23 01/05/24 Unknown Rx tabs hydrocodone 7.5 mg-acetaminophen 1 tab PO Q8H PRN pain 11 days #33 12/30/23 01/06/24 01/05/24 Rx 325 mg tablet tabs fosfomycin tromethamine 3 gram 1 packet PO Q3D #1 ea 01/05/24 01/05/24 Unknown Rx oral packet Allergies Allergy/AdvReac Type Severity Reaction Status Date / Time Penicillins AdvReac ADR-Itching Verified 01/05/24 10:21 PFSH Anesthesia Medical History No pertinent past medical history Denies: diabetes, asthma, hypertension, seizures, DVT/PE PCP: Dr. Mcleod Mixed hyperlipidemia Osteoporosis On Prolia managed by Dr. Mcleod since 2018 CKD (chronic kidney disease), stage III Hypertension Surgical History History of vaginal surgery 05/30/2020- anterior posterior colporrhaphy with mid urethal sling and sacrospinous fixation performed by Dr. 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 Xavier Bartlett. -----Operative reports requested and received (scanned) ---> Intraoperatively a 10 cm mass was noted which appeared to be originating from the left ovary and appeared to be benign. Frozen section was done which confirmed that this was benign. Bilateral ovaries, pelvic mass originating from the left ovary and uterus were removed without difficulty after lysis of adhesions. Vaginal cuff was closed. -Left tube and ovary with pelvic mass pathology showed serous cyst adenofibroma with normal fallopian tube. Right ovary should adenofibroma with focal features of serous cystoadenofibroma. Uterus showed fibroids with focally disordered proliferative endometrium and chronic cervicitis. The right fallopian tube appeared normal Hx of total knee replacement bileteral 2000-Performed in [place], [place] Performed in [place], [place] Hx laparoscopic cholecystectomy [id number]: Laparoscopic procedure, Performed in [place], [place] Hx of bilateral cataract extraction Performed in [place] Family History Family/Other No problems noted. Mother Diabetes Stroke Heart disease Thyroid disease Sister Hyperlipidemia x 3 Hypertension Father Congestive heart failure (CHF) Heart disease Other COPD (chronic obstructive pulmonary disease) Vaginal prolapse Denies family history of Colon cancer Ovarian cancer Breast cancer Uterine cancer Social History Smoking and tobacco/nicotine status: former use of tobacco/nicotine Quit status (tobacco/nicotine): has quit using Former quit date comment: quit age 45; smoked PPD x 20 yrs Second hand smoke exposure: No Alcohol intake: never Substance/Drug Use: never Additional social history: Tobacco use: Former smoker-started smoking in her 20s and smoked about 1 pack of cigarettes a day and stopped at the age of 45-denies tobacco product use since then Alcohol use: Denies Drug use: Denies 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 Caregiver/support person: Yes Lives independently: Yes Housing: House Marital status: Data Anesthesia Cardiac Studies: Echocardiogram 05/10/21 Sestamibi Stress Test (Cardiology) 05/10/21
[2024-01-06] MEDS: sodium chloride 0.9% 1,000 ML 30 ML IV (10:27)
[2024-01-06] MEDS: acetaminophen 1,000 MG/100 ML PIGGYBACK 400 MG IV ×2 (10:27→17:47)
[2024-01-06] MEDS: CELEcoxib 200 mg Capsule 400 MG PO (10:31)
[2024-01-06] MEDS: gabapentin 300 mg Capsule PO (10:32)
--- NOTE | 2024-01-06 10:52 | W.PM.OPSUD ---
Surgery/Procedure H&P Update DATE OF PROCEDURE: January 06, 2024 DATE H&P PERFORMED: 12/31/23 H&P UPDATE INFORMATION: I have reviewed H&P completed within last 30 days, I have examined patient prior to procedure, No changes to prior documentation and H&P is in [facility] [place] [place] EMR on date indicated PLANNED PROCEDURE: Operation Date: 01/06/24 11:25 Proposed Procedures p Total Hip Arthroplasty(Right) - Taya Mueller MD Related Problem List Diagnoses (1) Osteoarthritis of right hip: Qualifiers: Osteoarthritis type: primary Qualified Code(s): M16.11 - Unilateral primary osteoarthritis, right hip
[2024-01-06] MEDS: ceFAZolin 2,000 MG in sodium chloride 0.9% (plus) 50 ML 100 MG IV ×2 (10:57→19:20)
[2024-01-06] MEDS: tranexamic acid 1,000 mg/10mL SDV 1000 MG IV (11:26)
[2024-01-06] MEDS: vancomycin 1,000 MG SDV 1000 MG XX (11:49)
[2024-01-06] MEDS: ceFAZolin 1,000 mg SDV 1000 MG IRRIGATION (11:50)
--- NOTE | 2024-01-06 13:00 | XR_ITS ---
WS: [id number] Exam: XR pelvis 1-2V* [id number] Date/Time of Exam: 01/06/2024 1:18 PM Reason For Exam: S/P ANH A total RIGHT hip arthroplasty is noted. Postoperative changes in the adjacent soft tissues. The visu alized pelvis is intact. Mild DJD of the LEFT hip. IMPRESSION: 1. RIGHT total hip arthroplasty in place with postoperative soft tissue changes.
--- NOTE | 2024-01-06 13:09 | P.OP_ITS ---
Operative Report Date of procedure: January 06, 2024 Pre-op diagnosis: Severe degenerative osteoarthritis of the right hip Post-op diagnosis: Severe degenerative osteoarthritis of the right hip Post-op findings: Complete obliteration of joint space and deformity of the femoral head Procedure done: Right total hip arthroplasty Implants: The Aubrey total hip system with a size 54 mm by E alpha code Trident II Tritanium acetabular shell with an MDM liner size 42 mm inner diameter by E alpha code.? A size 9 Accolade II 127? neck angle hip stem with a size 28 mm x +4 mm femoral head and a confucianist MDM X3 insert size 28 mm x 42E Specimens removed/disposition: Bone, disposed of Pathology: None Surgeon: Taya Mueller MD Craft Recruiter: [facility] operating room technicians Anesthesia: General (Intubated, ASA 3) Estimated blood loss (mL): 80 IV fluids (mL): 1,400 Urine output (mL): 150 Complications: None Findings: Severe degenerative osteoarthritis with large osteophytes and femoral head deformity. The hip was stable at 90 degrees of flexion with 80 degrees of internal rotation and 30 degrees of abduction. It was also stable to toe hang and external rotation. Condition: stable Disposition: PACU (Then to floor for postoperative rehabilitation and pain management) Brief History: This 83-year-old woman presents today for same-day surgery in the form of right total hip arthroplasty. At the time of her visit to the office, her pain was 9 of 10. She had had pain for greater than a year. She had a fall in late October early November which caused worsening of her pain. While in the office, questions were answered and consents were signed. Procedure: Patient was brought to the operating theater.? She was transferred to the operating room table and subsequently administered a general anesthesia, intubated, ASA 3.? Following administration of adequate anesthesia, the patient was placed in full lateral position and held in position with a pegboard.? The patient's left lower extremity was then prepped and draped in usual fashion utilizing DuraPrep.? It was draped free.? Following prepping and draping, a surgical pause was performed.? At the time of surgical pause, we identified the site and side of surgery.? We also identified the patient and preoperative surgical markings.?The patient's operative leg was compared to the opposite leg.? Confirmation was made of equipment availability.? Additionally, the patient's preoperative IV antibiotic, Ancef 2 g, and TXA administration was confirmed as well.? X-rays were also reviewed. Following the surgical pause, an incision was made centering over the patient's greater trochanter continuing proximally and distally as necessary to allow access to the hip joint.? Dissection continued through skin and soft tissues using a scalpel, and hemostasis was obtained using electrocautery. The tensor fascia alison was identified and incised longitudinally.? Sciatic nerve was identified and protected throughout the surgical procedure.? A Charnley U retractor was placed after the tensor fascia alison had been incised longitudinally, and the sciatic nerve had been identified.? The hip was internally rotated, and the piriformis muscle was identified and tagged. Piriformis muscle along with the remaining short external rotators were then incised from the posterior aspect of the hip joint.? These were retracted posteriorly.? The capsule was entered in a T-type fashion with the edges being tagged, and subsequently the hip was dislocated.? The labrum was excised with further excision accomplished once the femoral head was removed.? Following hip dislocation, a femoral neck osteotomy was accomplished in the appropriate position.? The head was measured, but it was quite deformed.? We then evaluated the acetabulum. The femur was retracted anteriorly.? Soft tissues were retracted, and the labrum was removed.? Labrum was noted to be quite large and deformed. This was r emoved. We then began reaming.? Once the femoral head was removed, there was noted to be significant loss of cartilage over the head with the previously noted deformity and cartilage loss within the acetabulum.? We reamed to a size 53 to allow for a size 54 acetabular shell.? The acetabulum was impacted into position.? The MDM liner was then impacted into position with care being taken to assure it seated appropriately.? It was noted that the acetabulum matched the bony anatomy.? The cup was noted to seat nicely and had good fixation upon impact. Large osteophytes were removed from the anterior aspect of the acetabulum following cup insertion. Attention was directed to the proximal femur.? The proximal femur was lifted out of the wound.? A canal finder was passed after the box chisel.? The reamer was used to lateralize.? We then began broaching. We broached sequentially and had excellent fit and fill with the size 9 broach. ? A trial reduction was attempted with a +0 mm femoral head initially, but it was felt that over time, the soft tissues would stretch out, and this would become less stable. Because of this, we then placed a +4 mm femoral head which initially was difficult to reduce, but following movement of the hip, it was noted to loosen up slightly. With this construct, with the final trial, the hip was noted to be stable, and leg length was felt to be equal.? The final construct included a +4 mm femoral head with the above-noted stem and acetabulum. With this in place, we had the above stabilities.? This was felt to be excellent stability. Therefore, trial components were removed after the hip was dislocated.? The size 9 Accolade II 127? neck angle stem was impacted into position without difficulty and onto this was placed a +4 mm x 28 mm femoral head which had been assembled into the MDM insert size 42E.? With a +4 mm femoral head, we had the above-noted stability.? The stem was noted to seat nicely prior to placement of the femoral head.? The wound was copiously irrigated with 20 mL of Betadine and 500 mL of normal saline mixed together.? Subsequently, we suctioned this out and irrigated the wound copiously with lactated Ringer's.? At this time, with all components in appropriate position, the hip was reduced.? Following reduction of the prosthesis once again, we confirmed the stability of the hip.? Leg lengths were also felt to be satisfactory. Being satisfied with the prosthesis, attention was directed to closure.? Closure was accomplished with 0 Vicryl in the capsular tissues.? Piriformis was reattached with 0 Vicryl as well.? Tensor fascia alison was closed with 0 Vicryl in an interrupted fashion.? The subcutaneous tissues were closed with combination of 0 Vicryl and 2-0 Monocryl.? Vancomycin powder and a Gelfoam thrombin mixture was placed into the wound as well.? The skin was closed with a running 3-0 STRATAFIX followed by Dermabond Prineo followed by OpSite.? The patient was placed in an abduction pillow.? She was returned the Recovery Room in a satisfactory condition and will be discharged to the floor for postoperative rehabilitation and pain management.? There were no complications or specimens. Related Problem List Diagnoses (1) Osteoarthritis of right hip:
[2024-01-06] MEDS: fentaNYL 50 mcg/mL INJ 2mL IVP (13:49)
--- NOTE | 2024-01-06 14:21 | ANE.PACU2 ---
Inpatient post-anesthesia follow up: Vital signs: Temperature 97.2 F Pulse Rate 66 Respiratory Rate 17 Blood Pressure 155/64 Pulse Oximetry 97 Oxygen Delivery Me thod Room Air Oxygen Flow Rate 6 Fraction of Inspir ed Oxygen Hydration adequate: Yes Nausea and vomiting: No Mental status: Baseline Additional Comments: no known anesthetic complications noted
[2024-01-06] MEDS: oxyCODONE 5 mg IR Tab/Cap PO ×2 (16:09→20:20)
[2024-01-06] MEDS: sennosides-docusate Tablet 2 TAB PO (17:47)
[2024-01-06] MEDS: calcium carbonate 500 mg Chew Tablet 1000 MG PO (17:47)
[2024-01-06] MEDS: iron polysaccharide complex 150 mg Capsule PO (17:47)
[2024-01-06] MEDS: chlorhexidine gluconate 0.12% Btl 473 mL 30 ML MUCOUS MEM ×2 (19:19→20:23)
[2024-01-06] MEDS: mupirocin oint 22 gm 1 APPLIC NASAL (19:20)
[2024-01-06] MEDS: CELEcoxib 200 mg Capsule PO (22:21)
[2024-01-07] VITALS (8 sets, daily range): BP systolic 109–139; BP diastolic 62–71; PULSE 57–65; RESP 16–18; TEMP 36.5–36.8; O2SAT 90–96
[2024-01-07] MEDS: acetaminophen 1,000 MG/100 ML PIGGYBACK 400 MG IV ×2 (02:10→10:36)
[2024-01-07] MEDS: ceFAZolin 2,000 MG in sodium chloride 0.9% (plus) 50 ML 100 MG IV ×2 (03:06→11:53)
[2024-01-07] MEDS: oxyCODONE 5 mg IR Tab/Cap PO ×3 (05:05→22:02)
[2024-01-07] MEDS: FUROsemide 40 mg Tablet PO (05:05)
[2024-01-07 05:16] LABS: Basophils % 0.3 %; Eosinophils % 0.1 %; Hematocrit 31.6 % (36-47); Lymphocytes # 1.6 10^3/uL (0.8-4.8); Lymphocytes % 14.2 %; Mean Corpuscular HGB Conc 31.6 g/dL (30-55); Mean Corpuscular Hemoglobin 27.2 pg (27-33); Mean Corpuscular Volume 86.1 fl (85-98); Mean Platelet Volume 10.5 fL (7.4-10.4); Monocytes % 8.3 %; Neutrophils # 8.82 10^3/uL (1.8-7.7); Neutrophils % 76.6 %; Nucleated Red Blood Cells % 0 %; Platelet Count 219 10^3/cmm (157-399); Red Blood Count 3.67 10^6/uL (3.85-5.65); Red Cell Distribution Width 14.1 % (12.1-15.1); White Blood Count 11.51 10^3/uL (3.29-11.43)
[2024-01-07 05:34] LABS: Anion Gap 14.9 (5-19); Blood Urea Nitrogen 21 mg/dL (8-23); Calcium 8.4 mg/dL (8.5-10.5); Carbon Dioxide 22 mmol/L (22-29); Chloride 103 mmol/L (98-107); Creatinine Clr Calc Pharmacy 33.3048; Glucose 110 mg/dL (65-115); Osmolality Calculated 286 mOsm/kg (285-295); Potassium 3.9 mmol/L (3.5-5.1); Sodium 136 mmol/L (136-145)
[2024-01-07] MEDS: calcium carbonate 500 mg Chew Tablet 1000 MG PO ×2 (09:17→18:40)
[2024-01-07] MEDS: cholecalciferol (vitamin D3) 1,000 unit Tablet 1000 UNIT PO (09:17)
[2024-01-07] MEDS: iron polysaccharide complex 150 mg Capsule PO ×2 (09:19→18:40)
[2024-01-07] MEDS: sennosides-docusate Tablet 2 TAB PO ×2 (09:19→18:40)
[2024-01-07] MEDS: levothyroxine 25 mcg Tablet PO (09:19)
[2024-01-07] MEDS: aspirin 325 mg EC Tablet PO (09:19)
[2024-01-07] MEDS: multivitamin therapeutic Tablet 1 TAB PO (09:19)
[2024-01-07] MEDS: mupirocin oint 22 gm 1 APPLIC NASAL ×2 (09:23→18:41)
[2024-01-07] MEDS: chlorhexidine gluconate 0.12% Btl 473 mL 30 ML MUCOUS MEM ×4 (09:23→20:26)
[2024-01-07] MEDS: amlodipine 10 mg Tablet PO (09:49)
[2024-01-07] MEDS: ezetimibe 10 mg Tablet PO (09:49)
[2024-01-07] MEDS: CELEcoxib 200 mg Capsule PO ×2 (10:37→22:02)
--- NOTE | 2024-01-07 14:21 | P.PN_ITS ---
Subjective 2 Subjective: Patient is seen in her room. She has not been able to participate aggressively with physical therapy secondary to lightheadedness and dizziness. She will likely require an additional day in hospital for rehabilitation. Medications: Reviewed: Yes Vitals/I&O/Wt Last Vital Signs Temp 98.1 F 01/07/24 08:00 Pulse 65 01/07/24 09:50 Resp 18 01/07/24 09:18 BP 133/71 01/07/24 08:00 Pulse Ox 93 01/07/24 08:00 O2 Del Method Room Air 01/07/24 04:00 O2 Flow Rate 2 01/06/24 17:25 01/06/24 01/07/24 01/07/24 22:59 06:59 14:59 Intake Total 370 / 870 510 / 1380 580 / 580 Output Total 1150 / 1480 Balance 370 / 540 -640 / -100 580 / 580 Weight last 48 hrs Weight 166 lb 2 oz Weight 155 lb Weight 155 lb Physical Exam 2 Const: COMMON NORMALS: no acute distress, average body habitus, patient oriented x3 and alert GENERAL APPEARANCE: cooperative and comfortable O RIENTATION/CONSCIOUSNESS: Yes awake HENMT: COMMON NORMALS: normocephalic and atraumatic HEAD & SCALP: n ormocephalic and atraumatic Eye: GENERAL EYE: appearance normal, both eyes and all related structures Chest: COMMONS NORMALS: normal inspection of the chest Resp: COMMON NORMALS: normal respiratory effort EFFORT & INSPECTION: Yes able to speak in complete sentences and Yes symmetric chest movement Extremity: RIGHT LOWER EXTREMITY: Yes hip joint (Dressing is dry and intact) Right hip: Yes inspection (No bruising or significant swelling), Yes ROM (Not evaluated) and Yes neurovascular exam (Intact for patient, pre-existing deficits in motor function.) Neuro: COMMON NORMALS: patient oriented x3 SENSORIUM/ORIENTATION: Yes alert Psych: COMMON NORMALS: mental status grossly normal APPEARANCE: Yes grossly normal ATTITUDE: Yes calm and Yes engaged ATTENTION/CONCENTRATION: Yes attention grossly intact Skin: COMMON NORMALS: no rashes or lesions noted GENERAL SKIN EXAM: no rashes or lesions noted Urinary Catheter Management: Gonzalez: Cath Placed During This Visit: yes, but has since been removed by the nurse Reason for Continuing Indwelling Catheter: Decision to DC Catheter Urinary Catheter Date of Insertion: 01/06/24 Urinary Catheter Time of Insertion: 11:20 Date Urinary Catheter Removed: 01/07/24 Time Urinary Catheter Discontinued: 05:49 Data 01/07/24 04:55 01/07/24 04:55 A&P Assessment and plan (1) Osteoarthritis of right hip: This 83-year-old woman presented for same-day surgery in the form of right total hip arthroplasty. On postop day 1, she was having some weakness, and difficulty participating with physical therapy. Therefore, the patient will stay in the hospital for an additional day so that she can adequately work with physical therapy. Patient is in agreement with this plan, and plans were still made for her discharge to home. Qualifiers: Osteoarthritis type: primary Qualified Code(s): M16.11 - Unilateral primary osteoarthritis, right hip (2) History of arthroplasty of right hip: Attestations 2 Medical Necessity Statement*: Ongoing care following right total hip arthroplasty. Coding Level of Care Code Acute Code for [facility] Diagnoses Primary osteoarthritis of right hip M16.11 Osteoarthritis type: primary History of arthroplasty of right hip Z96.641
[2024-01-07] MEDS: acetaminophen 500 mg Tablet 1000 MG PO (18:40)
[2024-01-08] VITALS (7 sets, daily range): BP systolic 123–153; BP diastolic 58–81; PULSE 57–68; RESP 15–17; TEMP 36.4–36.6; O2SAT 93–98
[2024-01-08] MEDS: acetaminophen 500 mg Tablet 1000 MG PO ×2 (02:18→10:39)
[2024-01-08] MEDS: FUROsemide 40 mg Tablet PO (05:42)
[2024-01-08] MEDS: oxyCODONE 5 mg IR Tab/Cap PO ×2 (07:45→15:54)
[2024-01-08] MEDS: aspirin 325 mg EC Tablet PO (08:42)
[2024-01-08] MEDS: amlodipine 10 mg Tablet PO (08:42)
[2024-01-08] MEDS: multivitamin therapeutic Tablet 1 TAB PO (08:42)
[2024-01-08] MEDS: levothyroxine 25 mcg Tablet PO (08:42)
[2024-01-08] MEDS: calcium carbonate 500 mg Chew Tablet 1000 MG PO (08:42)
[2024-01-08] MEDS: sennosides-docusate Tablet 2 TAB PO (08:42)
[2024-01-08] MEDS: cholecalciferol (vitamin D3) 1,000 unit Tablet 1000 UNIT PO (08:42)
[2024-01-08] MEDS: ezetimibe 10 mg Tablet PO (08:42)
[2024-01-08] MEDS: chlorhexidine gluconate 0.12% Btl 473 mL 30 ML MUCOUS MEM ×2 (08:43→14:14)
[2024-01-08] MEDS: mupirocin oint 22 gm 1 APPLIC NASAL (08:43)
[2024-01-08] MEDS: iron polysaccharide complex 150 mg Capsule PO (08:43)
--- NOTE | 2024-01-08 09:27 | PC.CHAP ---
Pastoral Care Encounter/Spiritual Assessment Type of Contact [] Declined cellular equipment installer visit [] Patient/Family/Request visit [] Outpatient visit [] Follow-up visit [] Physician referral [] Code/Alert [x] Routine visit [] Staff referral [] Actively dying [] Patient sleeping [] Family support [] [] Out of room [] Palliative care [] [] Receiving care in room [] Pre-surgical visit [] Trauma [] Long length of stay [] ICU visit [] Other: Relational/Emotional Strength [x] Patient feels connected with others/family/visitors/staff [] Distress [] Loneliness/isolation [] Abandonment Spirituality of Patient [x] Person of Ai [] Attends Hinduism of their Ai [x] Believes in Prayer [] Reads Bible or Sabianism materials [] There are Spiritual issues to be addressed Television Cabinet Finisher Interventions [x] Prayer [x Active listening [] Non-anxious presence [x] Spiritual/emotional support [] Crisis/trauma care [] Spiritual counseling [] Bereavement support [] Provided bereavement packet [] Provided Bible/devotional materials [] Provided toy/stuffed animal, coloring book to patient or family member [] Provided Communion [] Anointing/Jeannette [] Salvation [x] Completed spiritual assessment [] Other: Impact on Illness or Injury [] Angry [] Fearful [] Anxious [] Often cries [] Exhaustion [] Unable to work [] Unable to attend baptism [] Unable to walk/stand [] Unable to read [] Unable to drive [] Unable to eat/drink [] Unable to sleep [] Unable to be with family [] Patient intubated [] Other: Summary Time spent with patient 5 min
[2024-01-08] MEDS: CELEcoxib 200 mg Capsule PO (10:39)
--- NOTE | 2024-01-08 16:49 | P.DS_ITS ---
Discharge Providers Date of Admission: 01/06/24 14:01 Date of Discharge: January 08, 2024 Attending Provider at Admission: Taya Mueller MD Attending Provider at Discharge: Taya Mueller MD Primary Care Provider: Sharifa Mcleod MD Diagnoses at Discharge Discharge Diagnosis (1) Osteoarthritis of right hip: Status: Acute Qualifiers: Osteoarthritis type: primary Qualified Code(s): M16.11 - Unilateral primary osteoarthritis, right hip Permanent problem details: Date of procedure: January 06, 2024 Diagnosis: Severe degenerative osteoarthritis of the right hip Procedure done: Right total hip arthroplasty Implants: The [place] total hip system with a size 54 mm by E alpha code Trident II Tritanium acetabular shell with an MDM liner size 42 mm inner diameter by E alpha code. A size 9 Accolade II 127? neck angle hip stem with a size 28 mm x +4 mm femoral head and a hindu MDM X3 insert size 28 mm x 42E (2) History of total right hip arthroplasty: Status: Acute (3) History of arthroplasty of right hip: Status: Acute Reason for Visit Reason for Visit: R13.10 Brief History: This 83-year-old woman presents today for same-day surgery in the form of right total hip arthroplasty. At the time of her visit to the office, her pain was 9 of 10. She had had pain for greater than a year. She had a fall in late October early November which caused worsening of her pain. While in the office, questions were answered and consents were signed. Hospital Course Hospital Course This 83-year-old woman was admitted under observation status following same-day surgery for right total hip arthroplasty. On the first postoperative day, the patient complained of significant weakness and inability to participate with physical therapy. Therefore, she was kept in hospital an additional night. On the second postoperative day, she was doing well and was able to be discharged home. Family was in agreement, and felt that she was safe. She will follow-up in the office as previously scheduled. Physical Exam Const: COMMON NORMALS: no acute distress, average body habitus, patient oriented x3 and alert GENERAL APPEARANCE: cooperative and comfortable ORIENTATION/CONSCIOUSNESS: Yes awake HENMT: COMMON NORMALS: normocephalic and atraumatic HEAD & SCALP: normocephalic and atraumatic Eye: GENERAL EYE: appearance normal, both eyes and all related structures Chest: COMMONS NORMALS: normal inspection of the chest Resp: COMMON NORMALS: normal respiratory effort EFFORT & INSPECTION: Yes able to speak in complete sentences and Yes symmetric chest movement Extremity: RIGHT LOWER EXTREMITY: Yes hip joint (Dressing is dry and intact. Minimal to no swelling) Right hip: Yes inspection (No significant bruising), Yes ROM (Not evaluated) and Yes neurovascular exam (Intact distally with no evidence of DVT) Neuro: COMMON NORMALS: patient oriented x3 SENSORIUM/ORIENTATION: Yes alert Psych: COMMON NORMALS: mental status grossly normal APPEARANCE: Yes grossly normal ATTITUDE: Yes calm and Yes engaged ATTENTION/CONCENTRATION: Yes attention grossly intact Skin: COMMON NORMALS: no rashes or lesions noted GENERAL SKIN EXAM: no rashes or lesions noted Urinary Catheter Management: Gonzalez: Cath Placed During This Visit: yes, but has since been removed by the nurse Reason for Continuing Indwelling Catheter: Decision to DC Catheter Urinary Catheter Date of Insertion: 01/06/24 Urinary Catheter Time of Insertion: 11:20 Date Urinary Catheter Removed: 01/07/24 Time Urinary Catheter Discontinued: 05:49 Discharge Data Studies Completed and Pending Completed Studies During Hospitalization Category Date Time Status XR pelvis 1-2V* 52094 Routine Exams 01/06/24 13:00 Completed Laboratory Results WBC 11.51 10^3/uL (3.29-11.43) H 01/07/24 04:55 RBC 3.67 10^6/uL (3.85-5.65) L 01/07/24 04:55 Hgb 10.00 g/dL (11.27-16.99) L 01/07/24 04:55 Hct 31.6 % (36-47) L 01/07/24 04:55 MCV 86.1 fl (85-98) 01/07/24 04:55 MCH 27.2 pg (27-33) 01/07/24 04:55 MCHC 31.6 g/dL (30-55) 01/07/24 04:55 RDW 14.1 % (12.1-15.1) 01/07/24 04:55 Plt Count 219 10^3/cmm (157-399) 01/07/24 04:55 MPV 10.5 fL (7.4-10.4) H 01/07/24 04:55 Neut % (Auto) 76.6 % 01/07/24 04:55 Lymph % (Auto) 14.2 % 01/07/24 04:55 [place] % (Auto) 8.3 % 01/07/24 04:55 Eos % (Auto) 0.1 % 01/07/24 04:55 Baso % (Auto) 0.3 % 01/07/24 04:55 Neut # (Auto) 8.82 10^3/uL (1.8-7.7) H 01/07/24 04:55 Lymph # (Auto) 1.6 10^3/uL (0.8-4.8) 01/07/24 04:55 [place] # (Auto) 1.0 10^3/uL (0.2-0.9) H 01/07/24 04:55 Eos # (Auto) 0.0 10^3/uL (0.0-0.8) 01/07/24 04:55 Baso # (Auto) 0.0 10^3/uL (0.0-0.1) 01/07/24 04:55 Nucleated RBC % (auto) 0 % 01/07/24 04:55 Nucleated RBCs # 0.0 /100WBC 01/07/24 04:55 Sodium 136 mmol/L (136-145) 01/07/24 04:55 Potassium 3.9 mmol/L (3.5-5.1) 01/07/24 04:55 Chloride 103 mmol/L (98-107) 01/07/24 04:55 Carbon Dioxide 22 mmol/L (22-29) 01/07/24 04:55 Anion Gap 14.9 (5-19) 01/07/24 04:55 BUN 21 mg/dL (8-23) 01/07/24 04:55 Creatinine 1.3 mg/dL (0.5-0.9) H 01/07/24 04:55 GFR Calculation Not Reportable 01/07/24 04:55 Glucose 110 mg/dL (65-115) 01/07/24 04:55 Calculated Osmolality 286 mOsm/kg (285-295) 01/07/24 04:55 Calcium 8.4 mg/dL (8.5-10.5) L 01/07/24 04:55 Vitals Last Vital Signs Temp 97.9 F 01/08/24 15:38 Pulse 61 01/08/24 15:38 Resp 17 01/08/24 15:54 BP 149/70 01/08/24 15:38 Pulse Ox 96 01/08/24 15:38 O2 Del Method Room Air 01/08/24 15:38 O2 Flow Rate 2 01/06/24 17:25 Discharge Plan Discharge Patient Disposition: Home Health Service Condition: Stable Prescriptions: New celecoxib 200 mg Capsule 200 mg PO 1XD 30 Days Qty: 30 0RF aspirin 325 mg Tablet,Delayed Release (Dr/Ec) 325 mg PO DAILY 30 Days Qty: 0 0RF Continued multivitamin [Daily Multi-Vitamin] Tablet 1 tab PO QAM ascorbate calcium-bioflavonoid 1,000-200 mg tablet extended release 1 tab PO DAILY Azo Cranberry 250 mg tablet,chewable 500 mg PO DAILY furosemide [Lasix] 40 mg tablet 40 mg PO QAM Qty: 90 1RF ICaps AREDS 4,296 mcg-226 mg-90 mg capsule 1 cap PO DAILY fosfomycin tromethamine 3 gram packet 1 packet PO Q3D Qty: 1 0RF acetaminophen [Tylenol] 325 mg tablet 650 mg PO BID PRN (Reason: Back Pain) Qty: 180 0RF nitroglycerin [Nitrostat] 0.4 mg tablet, sublingual 0.4 mg sublingual Q5M PRN (Reason: chest pain) Qty: 50 3RF Rx Instructions: do not exceed 3 doses per episode coenzyme Q10 [Co Q-10] 100 mg capsule 100 mg PO DAILY Qty: 90 0RF ezetimibe [Zetia] 10 mg tablet 10 mg PO DAILY Qty: 90 1RF levothyroxine 25 mcg tablet See Rx Instructions .ROUTE .COMPLEX Qty: 90 1RF Dose Instruction: TAKE 1 TABLET DAILY Rx Instructions: TAKE 1 TABLET DAILY amlodipine 10 mg tablet 10 mg .ROUTE DAILY Qty: 90 1RF Rx Instructions: 10 mg daily; carisoprodol 350 mg tablet 350 mg PO .HS PRN (Reason: muscle pain) Qty: 30 1RF hydrocodone-acetaminophen 7.5-325 mg tablet 1 tab PO Q8H PRN (Reason: pain) 11 Days Qty: 33 0RF Held aspirin [Adult Aspirin Regimen] 81 mg tablet,delayed release (DR/EC) 81 mg PO DAILY Qty: 90 3RF Hold Instructions: Resume on 02/07/24. Resume after 30 days of full strength aspirin Discharge Orders: Discharge Order (Routine); Ordered 01/08/24 Ordered By: Taya Mueller Other Ambulatory Orders: DME: Walker (Order) Location: None Selected Ordered By: Taya Mueller Referrals: [email or web address] [Other] Taya Mueller MD [Physician] - 02/02/24 10:30 am Discharge Diet: Advance as tolerated and Usual diet Discharge Activity: Increase activity as tolerated, Limit activity as i nstructed, Use walker/crutches as instructed and As per PT/OT instructions Patient Instructions: Oxycodone, Rapid Release (By mouth), Celecoxib (By mouth), Total Hip Replacement (GEN), Hip Abduction Pillow (GEN), Joint Replacement Stoplight, Opioid Safety Activity Restrictions/Additional Instructions: Posterior hip precautions. Weightbearing as tolerated. Home physical therapy for strengthening, ambulation, gait training, and range of motion with emphasis on posterior hip precautions Discharge Attestations Time Spent in Discharge Care*: greater than 30 min Specific Discharge Activities: educating patient, documenting/other paperwork and evaluating patient/reviewing data Quality Metrics Clinical Quality Measures [ No reported AMI, CVA or VTE this stay] Coding Level of Care Code Acute Code for Chg Fwd Diagnoses Primary osteoarthritis of right hip M16.11 Osteoarthritis type: primary History of total right hip arthroplasty Z96.641 History of arthroplasty of right hip Z96.641
== END 2024-01-08 17:20 | disposition home health service (06) ==
LOC: MEDSURG 14:02
PROVIDERS: Admitting Provider Specialist; PCP Family Medicine; Visit Provider Specialist
PROC: (CPT 27130; principal; 2024-01-06 10:40)
DX: M16.11 Unilateral primary osteoarthritis, right hip (principal); Z79.82 Long term (current) use of aspirin; E78.2 Mixed hyperlipidemia; M81.0 Age-related osteoporosis without current pathological fracture; I12.9 Hypertensive chronic kidney disease with stage 1 through stage 4 chronic kidney disease, or unspecified chronic kidney disease; N18.30 Chronic kidney disease, stage 3 unspecified; Z87.891 Personal history of nicotine dependence
CPT/HCPCS: 27130; 36415; 51702; 72170; 80048; 85025; 97110; 97116; 97161; 97165; 97530; 97535; C1713; C1776; G0378; J0131; J0690; J1100; J2371; J2405; J2704; J2710; J3010; J3370; J3490; J7030

== ENCOUNTER 2024-01-30 17:11 | Emergency (ER) | payer MEDICARE, OTHER, SELFPAY ==
[2024-01-30 17:34] VITALS: BP 162/67; PULSE 64; RESP 16; TEMP 36.6; O2SAT 95; BMI 25.9
--- NOTE | 2024-01-30 20:04 | XRR_ITS ---
PROCEDURE INFORMATION: Exam: XR Right Knee Exam date and time: 01/30/2024 9:04 PM Age: 83 years old Clinical indication: Pain; Right; Prior surgery; Surgery date: 6+ months; Surgery type: RT. Knee; Additional info: Knee pain TECHNIQUE: Imaging protocol: Radiologic exam of the right knee. Views: 3 views. COMPARISON: No relevant prior studies available. FINDINGS: Bones/joints: Total knee arthroplasty and patellar resurfacing. No evidence of hardware failure or loosening. No periprosthetic or other fracture. Diffuse osteopenia. Soft tissues: Trace joint effusion. XR/XR knee RT 3V* [id number] IMPRESSION: Trace joint effusion. No acute osseous or hardware-related abnormality on plain radiography.
[2024-01-30] MEDS: dexamethasone 10 mg/mL INJ IM (20:53)
[2024-01-30 21:00] VITALS: BP 196/74; PULSE 69; RESP 16; O2SAT 96
--- NOTE | 2024-01-30 21:46 | ED_ITS ---
HPI - Extremity Problem General: Chief complaint: Extremity Problem,Nontraumatic Stated complaint: right knee pain Time Seen by Provider: 01/30/24 20:27 History of Present Illness: Zaira Diaz is an 83-year-old female that is 4 weeks status post right hip replacement. 3 weeks ago she discontinued use of her Celebrex and she started physical therapy. Since that time her hip pain has improved but she developed right knee pain. Patient denies any falls or injuries. She does report bilateral total knee arthroplasties She is taken Tylenol twice since the development of this pain. She has not tried ice or heat. She has not taken any other medications. Fortunately she has follow-up with her orthopedic surgeon on Thursday Review of Systems Narrative: The patient denies chest pain, palpitations, shortness of breath, increasing edema. PFSH ED PFSH: Medical History No pertinent past medical history Denies: diabetes, asthma, hypertension, seizures, DVT/PE PCP: Dr. Mcleod Mixed hyperlipidemia Osteoporosis On Prolia managed by Dr. Mcleod since 2018 CKD (chronic kidney disease), stage III Hypertension Surgical History History of vaginal surgery 05/30/2020- anterior posterior colporrhaphy with mid urethal sling and sacrospinous fixation performed by Dr. 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 Xavier Bartlett. -----Operative reports requested and received (scanned) ---> Intraoperatively a 10 cm mass was noted which appeared to be originating from the left ovary and appeared to be benign. Frozen section was done which confirmed that this was benign. Bilateral ovaries, pelvic mass originating from the left ovary and uterus were removed without difficulty after lysis of adhesions. Vaginal cuff was closed. -Left tube and ovary with pelvic mass pathology showed serous cyst adenofibroma with normal fallopian tube. Right ovary should adenofibroma with focal features of serous cystoadenofibroma. Uterus showed fibroids with focally disordered proliferative endometrium and chronic cervicitis. The right fallopian tube appeared normal Hx of total knee replacement bileteral 2000-Performed in [place], [place] Performed in [place], [place] Hx laparoscopic cholecystectomy [id number]: Laparoscopic procedure, Performed in [place], [place] Hx of bilateral cataract extraction Performed in [place], [place] Family History Family/Other No problems noted. Mother Diabetes Stroke Heart disease Thyroid disease Sister Hyperlipidemia x 3 Hypertension Father Congestive heart failure (CHF) Heart disease Other COPD (chronic obstructive pulmonary disease) Vaginal prolapse Denies family history of Colon cancer Ovarian cancer Breast cancer Uterine cancer Social History Smoking and tobacco/nicotine status: former use of tobacco/nicotine Quit status (tobacco/nicotine): has quit using Former quit date comment: quit age 45; smoked PPD x 20 yrs Second hand smoke exposure: No Alcohol intake: never Substance/Drug Use: never Additional social history: Tobacco use: Former smoker-started smoking in her 20s and smoked about 1 pack of cigarettes a day and stopped at the age of 45- denies tobacco product use since then Alcohol use: Denies Drug use: Denies 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 Caregiver/support person: Yes Lives independently: Yes Housing: House Marital status: Physical Exam Narrative: EXAM NARRATIVE: GEN: NAD, AOx3, well appearing HEENT: normocephalic, EOMI, no scleral icterus, hearing grossly normal, moist oral mucosa CV: no carotid bruit, rrr, no murmurs, no edema RESP: nonlabored breathing, LCTAB NEURO: no focal deficits SKIN: no rashes or lesions noted Extremity: NARRATIVE EXTREMITY EXAM: Patient is able to flex and extend her knee. Her knee is symmetrical to the other knee There is no erythema warmth or drainage Is able to dorsiflex plantarflex foot She is able to dorsiflex great toe Sensation intact to light touch at medial, lateral, dorsal, plantar surface of the foot and first webspace DP pulse palpable and cap refills less than 3 seconds Course Vital Signs: Vital signs: Vital Signs Temperature 98 F 01/30/24 17:34 Pulse Rate 64 01/30/24 17:34 Respiratory Rate 16 01/30/24 17:34 Blood Pressure 162/67 01/30/24 17:34 Pulse Oximetry 95 01/30/24 17:34 Oxygen Delivery Me thod Room Air 01/30/24 17:34 MDM - Extremity (Nontraumatic) Medical Decision Making Patient underwent an XR of the right knee to rule out hardware or fracture. No acute finding She was given Decadron 10 mg IM and reevaluated. Her symptoms had significantly declined. Have avoided giving her any NSAIDs since she does report a history of chronic kidney disease. She believes her kidneys are improving but she does have base line dysfunction Patient is follow-up with Dr. Mueller on Thursday XR interpretation done by ED provider, pending radiology final review Discharge Plan Discharge Patient Disposition: Home Clinical Impression: Acute knee pain Condition: Stable Prescriptions: No Action multivitamin [Daily Multi-Vitamin] Tablet 1 tab PO QAM ascorbate calcium-bioflavonoid 1,000-200 mg tablet extended release 1 tab PO DAILY aspirin [Adult Aspirin Regimen] 81 mg tablet,delayed release (DR/EC) 81 mg PO DAILY Qty: 90 3RF Hold Instructions: Resume on 02/07/24. Resume after 30 days of full strength aspirin Azo Cranberry 250 mg tablet,chewable 500 mg PO DAILY furosemide [Lasix] 40 mg tablet 40 mg PO QAM Qty: 90 1RF ICaps AREDS 4,296 mcg-226 mg-90 mg capsule 1 cap PO DAILY fosfomycin tromethamine 3 gram packet 1 packet PO Q3D Qty: 1 0RF acetaminophen [Tylenol] 325 mg tablet 650 mg PO BID PRN (Reason: Back Pain) Qty: 180 0RF nitroglycerin [Nitrostat] 0.4 mg tablet, sublingual 0.4 mg sublingual Q5M PRN (Reason: chest pain) Qty: 50 3RF Rx Instructions: do not exceed 3 doses per episode coenzyme Q10 [Co Q-10] 100 mg capsule 100 mg PO DAILY Qty: 90 0RF ezetimibe [Zetia] 10 mg tablet 10 mg PO DAILY Qty: 90 1RF levothyroxine 25 mcg tablet See Rx Instructions .ROUTE .COMPLEX Qty: 90 1RF Dose Instruction: TAKE 1 TABLET DAILY Rx Instructions: TAKE 1 TABLET DAILY amlodipine 10 mg tablet 10 mg .ROUTE DAILY Qty: 90 1RF Rx Instructions: 10 mg daily; carisoprodol 350 mg tablet 350 mg PO .HS PRN (Reason: muscle pain) Qty: 30 1RF hydrocodone-acetaminophen 7.5-325 mg tablet 1 tab PO Q8H PRN (Reason: pain) 11 Days Qty: 33 0RF celecoxib 200 mg Capsule 200 mg PO 1XD 30 Days Qty: 30 0RF aspirin 325 mg Tablet,Delayed Release (Dr/Ec) 325 mg PO DAILY 30 Days Qty: 0 0RF Discharge Orders: Discharge ED (Routine); Ordered 01/30/24 Ordered By: Shoshana Jang Referrals: Sharifa Mcleod MD [Primary Care Provider] - Patient Instructions: Opioid Safety, Pain Management Activity Restrictions/Additional Instructions: Please follow-up with your with surgeon on Thursday as planned Watch the use ice and Tylenol as needed for pain. You can trial Voltaren on the knee but keep in mind with your history of kidney dysfunction, you should avoid medications like this. 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
[2024-01-31 03:30] VITALS: BP 171/74; RESP 68; O2SAT 96
== END 2024-01-30 22:45 | disposition home or self-care (01) ==
PROVIDERS: Emergency Provider Nurse Practitioner; PCP Family Medicine
DX: M25.561 Pain in right knee (principal); Z79.82 Long term (current) use of aspirin; Z87.891 Personal history of nicotine dependence; I12.9 Hypertensive chronic kidney disease with stage 1 through stage 4 chronic kidney disease, or unspecified chronic kidney disease; N18.30 Chronic kidney disease, stage 3 unspecified; E78.2 Mixed hyperlipidemia; Z96.653 Presence of artificial knee joint, bilateral
CPT/HCPCS: 73562; 96372; 99284; J1100

== ENCOUNTER → 2024-02-02 10:37 | Outpatient (BNVA) | payer MEDICARE, OTHER, SELFPAY | PROVIDERS: PCP Family Medicine; Visit Provider Specialist | DX: Z96.641 Presence of right artificial hip joint (principal); M16.11 Unilateral primary osteoarthritis, right hip | CPT/HCPCS: 73502 ==

== ENCOUNTER → 2024-02-23 17:11 | Outpatient (BNVA) | payer MEDICARE, OTHER, SELFPAY | PROVIDERS: PCP Family Medicine; Visit Provider Family Medicine | DX: N18.9 Chronic kidney disease, unspecified (principal); E55.9 Vitamin D deficiency, unspecified | CPT/HCPCS: 80069; 82043; 82306; 82310; 83970; 85025 ==

== ENCOUNTER → 2024-03-07 13:33 | Outpatient (BNVA) | payer MEDICARE, OTHER, SELFPAY | PROVIDERS: PCP Family Medicine; Visit Provider Specialist | DX: Z96.641 Presence of right artificial hip joint (principal) | CPT/HCPCS: 73502; 99024 ==

== ENCOUNTER → 2024-03-22 09:25 | Outpatient (BNVA) | payer MEDICARE, OTHER, SELFPAY | PROVIDERS: PCP Family Medicine; Visit Provider Podiatrist Foot & Ankle Surgery | DX: M79.671 Pain in right foot (principal); M76.821 Posterior tibial tendinitis, right leg | CPT/HCPCS: 73600; 73630 ==

== ENCOUNTER 2024-03-22 10:57 | Outpatient (CLI) | payer MEDICARE, OTHER, SELFPAY | END 2024-03-22 10:58 | disposition home or self-care (01) | LOC: SPT 10:57 | PROVIDERS: PCP Family Medicine; Visit Provider Podiatrist Foot & Ankle Surgery | DX: Z46.89 Encounter for fitting and adjustment of other specified devices (principal); M76.821 Posterior tibial tendinitis, right leg | CPT/HCPCS: 97760; L1902 ==

== ENCOUNTER → 2024-04-20 13:03 | Outpatient (BNVA) | payer MEDICARE, OTHER, SELFPAY | PROVIDERS: PCP Family Medicine; Visit Provider Podiatrist Foot & Ankle Surgery | DX: M76.821 Posterior tibial tendinitis, right leg (principal) | CPT/HCPCS: 99213 ==

== ENCOUNTER 2024-05-04 11:02 | Outpatient (CLI) | payer MEDICARE, OTHER, SELFPAY ==
--- NOTE | 2024-05-04 11:05 | XR_ITS ---
WS: [id number] Examination: XR shoulder RT min 2V* [id number] Reason for Exam: M25.511 - Pain in right shoulder Date: May 04, 2024 Comparison: January 23, 2023 Findings: The bone density is diminished and mottled. Findings concerning for potential lytic area within the s capula and proximal humerus are noted. There is no displaced fracture or anterior dislocation. Mild degenerative changes at the AC joint are noted. Again mild arthritic change at the glenohumeral joint is identified. XR/XR shoulder RT min 2V* [id number] Impression: Mild degenerative changes are again noted. There is no displaced fracture or an terior dislocation Diminished and mottled bone density. Questionable lytic area within the scapula and proximal humerus. Nuclear medicine bone scan may be of benefit if clinical ly indicated
== END 2024-05-04 11:03 | disposition home or self-care (01) ==
LOC: RAD 11:05
PROVIDERS: PCP Family Medicine; Visit Provider Family Medicine
DX: M19.011 Primary osteoarthritis, right shoulder (principal); M25.511 Pain in right shoulder
CPT/HCPCS: 73030

== ENCOUNTER → 2024-06-07 14:04 | Outpatient (BNVA) | payer MEDICARE, OTHER, SELFPAY | PROVIDERS: PCP Family Medicine; Visit Provider Internal Medicine | DX: E78.2 Mixed hyperlipidemia (principal); I10 Essential (primary) hypertension; R60.9 Edema, unspecified | CPT/HCPCS: 99213 ==

== ENCOUNTER 2024-06-13 07:58 | Outpatient (CLI) | payer MEDICARE, OTHER, SELFPAY ==
--- NOTE | 2024-06-13 08:00 | NM_ITS ---
WS: [id number] NUCLEAR MEDICINE WHOLE BODY BONE SCAN HISTORY: lytic lesion on scapula and femoral head COMPARISON: 09/01/2011, RIGHT shoulder radiographs 05/04/2024 TECHNIQUE: The patient was injected with 25.1 mCi of Technetium 99m HDP and serial whole-body scintig tong have been performed with anterior and posterior images. There is intense uptake within the RIGHT humeral head. On the radiographs there is lucency and osteop enia and degenerative changes. The distribution indicates this may be a fracture. The visualized port ions of the scapula separate from the humeral head are negative. There is additional LEFT AC joint and glenohumeral joint arthritis. Mild arthropathy involving the el bows and wrists. More intense arthropathy at the ankles. Bilateral knee replacements. Prior RIGHT hip arthroplasty. Mild arthropathy throughout the lumbar spine. Normal soft tissue uptake. CA/NM bone scan whole body* [id number] IMPRESSION: 1. Marked increase uptake involving the RIGHT humeral head. This corresponds t o the variable density seen on the recent radiograph. Differential includes fra cture and developing osteonecrosis. Less likely tumor but without a history of malignancy. The remaining bony skeleton demonstrates multilevel arthropathy at the joints. No additional sites suspicious for metastatic disease. 2. Prior bilateral knee replacements and RIGHT hip replacement.
== END 2024-06-13 07:59 | disposition home or self-care (01) ==
LOC: RAD 07:59
PROVIDERS: PCP Family Medicine; Visit Provider Family Medicine
DX: M85.80 Other specified disorders of bone density and structure, unspecified site (principal); R93.7 Abnormal findings on diagnostic imaging of other parts of musculoskeletal system; Z96.653 Presence of artificial knee joint, bilateral; Z96.643 Presence of artificial hip joint, bilateral
CPT/HCPCS: 78306; A9561

== ENCOUNTER → 2024-06-20 14:21 | Outpatient (BNVA) | payer MEDICARE, OTHER, SELFPAY | PROVIDERS: PCP Family Medicine; Visit Provider Specialist | DX: M19.011 Primary osteoarthritis, right shoulder (principal) | CPT/HCPCS: 20610; 73030; 99214; J1100; J2795; J3301 ==

== ENCOUNTER 2024-06-21 06:30 | Outpatient (RCR) | payer MEDICARE, OTHER, SELFPAY | END 2024-07-21 23:59 | disposition home or self-care (01) | LOC: TPT 06:30 | PROVIDERS: Visit Provider Nurse Practitioner Family | DX: M25.511 Pain in right shoulder (principal) | CPT/HCPCS: 97110; 97162 ==

== ENCOUNTER → 2024-08-03 15:22 | Outpatient (BNVA) | payer MEDICARE, OTHER, SELFPAY | PROVIDERS: PCP Nurse Practitioner Family; Visit Provider Nurse Practitioner Family | DX: I10 Essential (primary) hypertension (principal) | CPT/HCPCS: 80053; 80061; 84443; 85025 ==

== ENCOUNTER → 2024-08-08 13:26 | Outpatient (BNVA) | payer MEDICARE, OTHER, SELFPAY | PROVIDERS: PCP Nurse Practitioner Family; Visit Provider Specialist | DX: Z96.641 Presence of right artificial hip joint (principal); M16.11 Unilateral primary osteoarthritis, right hip | CPT/HCPCS: 73502; 99214 ==

== ENCOUNTER 2024-08-16 06:00 | Outpatient (RCR) | payer MEDICARE, OTHER, SELFPAY | END 2024-08-20 23:59 | disposition home or self-care (01) | LOC: TPT 06:00 | PROVIDERS: PCP Nurse Practitioner Family; Visit Provider Specialist | DX: Z47.1 Aftercare following joint replacement surgery (principal); Z96.641 Presence of right artificial hip joint | CPT/HCPCS: 97110 ==

== ENCOUNTER 2024-08-21 06:00 | Outpatient (RCR) | payer MEDICARE, OTHER, SELFPAY | END 2024-09-20 23:59 | disposition home or self-care (01) | LOC: TPT 06:00 | PROVIDERS: PCP Nurse Practitioner Family; Visit Provider Specialist | DX: Z47.1 Aftercare following joint replacement surgery (principal); Z96.641 Presence of right artificial hip joint | CPT/HCPCS: 97110 ==

== ENCOUNTER → 2024-10-05 14:23 | Outpatient (BNVA) | payer MEDICARE, OTHER, SELFPAY | PROVIDERS: PCP Nurse Practitioner Family; Visit Provider Nurse Practitioner Family | DX: M19.011 Primary osteoarthritis, right shoulder (principal) | CPT/HCPCS: 73030 ==

== ENCOUNTER → 2024-10-10 14:41 | Outpatient (BNVA) | payer MEDICARE, OTHER, SELFPAY | PROVIDERS: PCP Nurse Practitioner Family; Visit Provider Nurse Practitioner Family | DX: S72.091A Other fracture of head and neck of right femur, initial encounter for closed fracture (principal); M97.01XA Periprosthetic fracture around internal prosthetic right hip joint, initial encounter; W19.XXXA Unspecified fall, initial encounter; Y92.009 Unspecified place in unspecified non-institutional (private) residence as the place of occurrence of the external cause | CPT/HCPCS: 73502 ==

== ENCOUNTER 2024-10-20 09:00 | Outpatient (CLI) | payer MEDICARE, OTHER, SELFPAY ==
--- NOTE | 2024-10-20 09:00 | CT_ITS ---
WS: [id number] CT RIGHT HIP, NONCONTRAST HISTORY: M25.551 - Pain in right hip Technique: All CT scans at [facility] use at least one of these dose optimization techniques: automated exposure control; mA and/or kV adjustment per patient size (includes targeted exams where dose is matched to clinical indication); or iterative reconstruction. DLP: 475.09 mGy.cm COMPARISON: Radiograph 10/10/2024 Patient is status post RIGHT total hip arthroplasty. No acute fracture or loosening noted around the prosthetic device. There is no fracture at the distal tip. Normal acetabular alignment. Mild degenera tive air in the RIGHT SI joint. Normal symphysis pubis. Soft tissue stranding and linear collection posterior to the RIGHT hip. With history of recent trauma this may be some bruising and post trauma changes in the soft tissue. Some of these changes also may be related to the hip prosthesis surgery. CT/CT hip RT wo con* [id number] IMPRESSION: 1. Status post RIGHT hip arthroplasty. 2. No fractures associated with the RIGHT hip arthroplasty. 3. Soft tissue stranding and a small amount of fluid in the posterior lateral RIGHT thigh. This may be related to the recent fall or residual postoperative h ealing.
== END 2024-10-20 09:01 | disposition home or self-care (01) ==
LOC: RAD 09:01
PROVIDERS: PCP Nurse Practitioner Family; Visit Provider Nurse Practitioner Family
DX: M25.551 Pain in right hip (principal); W19.XXXA Unspecified fall, initial encounter; Y92.009 Unspecified place in unspecified non-institutional (private) residence as the place of occurrence of the external cause; M25.651 Stiffness of right hip, not elsewhere classified; Z96.641 Presence of right artificial hip joint; R93.89 Abnormal findings on diagnostic imaging of other specified body structures
CPT/HCPCS: 73700

== ENCOUNTER → 2024-11-07 13:38 | Outpatient (BNVA) | payer MEDICARE, OTHER, SELFPAY | PROVIDERS: PCP Nurse Practitioner Family; Visit Provider Specialist | DX: Z96.641 Presence of right artificial hip joint (principal); M16.11 Unilateral primary osteoarthritis, right hip | CPT/HCPCS: 73502; 99213 ==

== ENCOUNTER → 2024-11-14 14:32 | Outpatient (BNVA) | payer MEDICARE, OTHER, SELFPAY | PROVIDERS: PCP Nurse Practitioner Family; Visit Provider Specialist | DX: M75.101 Unspecified rotator cuff tear or rupture of right shoulder, not specified as traumatic (principal) | CPT/HCPCS: 20610; 73030; 99214; J1100; J2795; J3301 ==

== ENCOUNTER → 2024-11-30 15:06 | Outpatient (BNVA) | payer MEDICARE, OTHER, SELFPAY | PROVIDERS: PCP Nurse Practitioner Family; Visit Provider Nurse Practitioner Family | DX: I10 Essential (primary) hypertension (principal); E55.9 Vitamin D deficiency, unspecified | CPT/HCPCS: 80053; 80061; 82306; 83036; 84443; 85025 ==

== ENCOUNTER → 2025-05-17 09:20 | Outpatient (BNVA) | payer MEDICARE, OTHER, SELFPAY | PROVIDERS: PCP Nurse Practitioner Family; Visit Provider Nurse Practitioner Family | DX: I10 Essential (primary) hypertension (principal) | CPT/HCPCS: 80053; 80061; 84443; 85025 ==

== ENCOUNTER → 2025-06-07 11:46 | Outpatient (BNVA) | payer MEDICARE, OTHER, SELFPAY | PROVIDERS: PCP Nurse Practitioner Family; Visit Provider Nurse Practitioner Family | DX: R30.0 Dysuria (principal); N39.0 Urinary tract infection, site not specified | CPT/HCPCS: 81000; 81003; 87086 ==